=== PATIENT | female | born 1970 | race Caucasian/White ===

== ENCOUNTER → 2017-08-17 | Outpatient (CLI) | payer OTHER ==
--- NOTE | 2017-08-18 10:29 | MM ---
Reason for exam: screening (asymptomatic). Last mammogram was performed 1 year and 5 months ago. Physical Findings: A clinical breast exam by your physician is recommended on an annual basis and results should be correlated with mammographic findings. MG 3D Screening Mammo W/Cad Bilateral CC and MLO view(s) were taken. Prior study comparison: March 06, 2016, bilateral MG 3d screening mammo w/cad. January 07, 2015, bilateral MG screening mammo w CAD. The breast tissue is heterogeneously dense. This may lower the sensitivity of mammography. There is no discrete abnormality. ASSESSMENT: Negative, BI-RAD 1 RECOMMENDATION: Routine screening mammogram of both breasts in 1 year.
== END | disposition home or self-care (01) ==
LOC: RADMAMWWP 16:45
PROVIDERS: ATTEND Obstetrics & Gynecology
DX: Z12.31 Encounter for screening mammogram for malignant neoplasm of breast (principal)
CPT/HCPCS: 77063; G0202

== ENCOUNTER → 2018-02-25 | Outpatient (CLI) | payer OTHER ==
--- NOTE | 2018-02-25 07:53 | US ---
EXAMINATION TYPE: US abdomen complete DATE OF EXAM: 02/25/2018 COMPARISON: 07/25/2014 CLINICAL HISTORY: 48-year-old female R10.11 Right upper quadrant pain. General abdominal pain, NPO, n o surgeries TECHNIQUE: Multiple sonographic images of the abdomen are obtained. FINDINGS: EXAM MEASUREMENTS: Liver Length: 14.5 cm Gallbladder Wall: 0.2 cm CBD: 0.5 cm CHD: 0.3 cm Spleen: 10.4 cm Right Kidney: 11.6 x 4.6 x 3.9 cm Left Kidney: 11.2 x 5.9 x 5.6 cm Pancreas: wnl Liver: Right posterior simple cystic appearing lesion = 3.5 x 2.5 x 2.6 cm. Homogeneous echotexture and normal size. Gallbladder: wnl Evidence for sonographic Marinelli's sign: neg CBD: wnl CHD: wnl Spleen: wnl Right Kidney: No hydronephrosis. Left Kidney: A small extrarenal pelvis versus 1.7 cm parapelvic cyst. No hydronephrosis. Upper IVC: wnl Abd Aorta: wnl IMPRESSION: 1. An incidental 3.5 cm cyst posteriorly in the right liver lobe. 2. Otherwise, no specific abnormality seen.
[2018-02-25 08:16] LABS: HCT 41.6 % (34.0-46.0); MCH 29.3 pg (25.0-35.0); MCHC 33.7 g/dL (31.0-37.0); MCV 87.1 fL (80.0-100.0); Mean Platelet Volume 7.8; Platelet Count 164 k/uL (150-450); RBC 4.78 m/uL (3.80-5.40); RDW 12.2 % (11.5-15.5); WBC 5.3 k/uL (3.8-10.6)
[2018-02-25 08:36] LABS: ALT 28 U/L (9-52); AST 23 U/L (14-36); Albumin 4.2 g/dL (3.5-5.0); Alkaline Phosphatase 43 U/L (38-126); Anion Gap 9 mmol/L; Blood Urea Nitrogen 18 mg/dL (7-17); Carbon Dioxide 26 mmol/L (22-30); Chloride 104 mmol/L (98-107); Cholesterol 183 mg/dL (<200); Glucose 78 mg/dL (74-99); HDL Cholesterol 61 mg/dL (40-60); LDL Cholesterol,Calculated 102 mg/dL (0-99); Potassium 4.3 mmol/L (3.5-5.1); Sodium 139 mmol/L (137-145); Total Bilirubin 0.5 mg/dL (0.2-1.3); Total Protein 6.5 g/dL (6.3-8.2); Triglycerides 100 mg/dL (<150)
[2018-02-25 08:45] LABS: T4, Free (Free Thyroxine) 0.85 ng/dL (0.78-2.19)
== END | disposition home or self-care (01) ==
LOC: RADUSWWP 07:05
PROVIDERS: ATTEND Internal Medicine
DX: K76.89 Other specified diseases of liver (principal); I10 Essential (primary) hypertension; R19.7 Diarrhea, unspecified
CPT/HCPCS: 36415; 76700; 80053; 80061; 83630; 84439; 84443; 85027; 87328; 87329

== ENCOUNTER → 2019-03-14 | Outpatient (CLI) | payer OTHER ==
--- NOTE | 2019-03-16 11:58 | MM ---
Reason for exam: screening (asymptomatic). Last mammogram was performed 1 year and 7 months ago. Physical Findings: A clinical breast exam by your physician is recommended on an annual basis and results should be correlated with mammographic findings. MG 3D Screening Mammo W/Cad Bilateral CC and MLO view(s) were taken. Prior study comparison: August 17, 2017, bilateral MG 3d screening mammo w/cad. March 06, 2016, bilateral MG 3d screening mammo w/cad. The breast tissue is extremely dense which could obscure a lesion on mammography. No significant changes when compared with prior studies. ASSESSMENT: Benign, BI-RAD 2 RECOMMENDATION: Routine screening mammogram of both breasts in 1 year.
== END | disposition home or self-care (01) ==
LOC: RADMAMWWP 16:32
PROVIDERS: ATTEND Obstetrics & Gynecology
DX: Z12.31 Encounter for screening mammogram for malignant neoplasm of breast (principal)
CPT/HCPCS: 77063; 77067

== ENCOUNTER → 2019-05-09 | Outpatient (CLI) | payer OTHER ==
[2019-05-09 10:35] LABS: Basophils % (A) 0 %; Eosinophils # (A) 0.1 k/uL (0-0.7); Eosinophils % (A) 1 %; HCT 39.9 % (34.0-46.0); HGB 13.9 gm/dL (11.4-16.0); Lymphocytes # (A) 0.6 k/uL (1.0-4.8); Lymphocytes % (A) 12 %; MCH 30.7 pg (25.0-35.0); MCHC 34.9 g/dL (31.0-37.0); MCV 87.9 fL (80.0-100.0); Mean Platelet Volume 8.4; Monocytes # (A) 0.3 k/uL (0-1.0); Monocytes % (A) 5 %; Neutrophils # (A) 4.3 k/uL (1.3-7.7); Neutrophils % (A) 81 %; Platelet Count 157 k/uL (150-450); RBC 4.54 m/uL (3.80-5.40); RDW 13.6 % (11.5-15.5); WBC 5.3 k/uL (3.8-10.6)
[2019-05-09 17:53] LABS: African American GFR (CKD) 119.6 (60.0-200.0); Albumin 4.2 g/dL (3.80-4.90); Albumin/Globulin Ratio 2.21 (1.60-3.17); Anion Gap 7.7 mmol/L (4.00-12.00); BUN/Creat Ratio 17.14 Ratio (12.00-20.00); Carbon Dioxide 27.3 mmol/L (21.6-31.8); Chol/HDL Ratio 2.27; Globulin 1.9 g/dL (1.6-3.3); Potassium 3.9 mmol/L (3.5-5.5); Total Bilirubin 0.5 mg/dL (0.3-1.2); Total Protein 6.1 g/dL (6.2-8.2)
== END | disposition home or self-care (01) ==
LOC: LABWHC1 09:01
PROVIDERS: ATTEND Internal Medicine
DX: Z00.01 Encounter for general adult medical examination with abnormal findings (principal); I10 Essential (primary) hypertension; Z13.220 Encounter for screening for lipoid disorders
CPT/HCPCS: 36415; 80053; 80061; 84443; 85025

== ENCOUNTER → 2020-09-16 | Outpatient (CLI) | payer OTHER ==
--- NOTE | 2020-09-17 14:33 | MM ---
Reason for exam: screening (asymptomatic). Last mammogram was performed 1 year and 6 months ago. History: Took estrogen beginning at age 50. Physical Findings: A clinical breast exam by your physician is recommended on an annual basis and results should be correlated with mammographic findings. MG 3D Screening Mammo W/Cad Bilateral CC and MLO view(s) were taken. Prior study comparison: March 14, 2019, bilateral MG 3d screening mammo w/cad. August 17, 2017, bilateral MG 3d screening mammo w/cad. The breast tissue is heterogeneously dense. This may lower the sensitivity of mammography. Focal asymmetry left breast, present previously. No significant changes when compared with prior studies. ASSESSMENT: Benign, BI-RAD 2 RECOMMENDATION: Routine screening mammogram of both breasts in 1 year.
== END | disposition home or self-care (01) ==
LOC: RADMAMWWP 09:32
PROVIDERS: ATTEND Obstetrics & Gynecology
DX: Z12.31 Encounter for screening mammogram for malignant neoplasm of breast (principal)
CPT/HCPCS: 77063; 77067

== ENCOUNTER 2021-03-07 22:41 | Emergency (ER) | payer OTHER ==
[2021-03-07 22:49] VITALS: RESP 16; TEMP 97.9
[2021-03-07] MEDS ORDERED: ONDANSETRON 4 MG/2 ML VIAL IVP STA (23:03)
[2021-03-07] MEDS ORDERED: SODIUM CHLORIDE 0.9% 1,000 ML IV STA (23:03)
[2021-03-07] MEDS ORDERED: FAMOTIDINE 20 MG/2 ML VIAL IV STA (23:08)
--- NOTE | 2021-03-07 23:10 | ED ---
General Adult HPI - General Chief complaint: Abdominal Pain Stated complaint: NVD Source: patient, RN notes reviewed Mode of arrival: wheelchair Limitations: no limitations - History of Present Illness Initial comments: 51-year-old white female presents to the emergency room, alert and oriented 4, complaints of diarrhea for the past 24 hours up to 20 times a day. Patient stat es it is watery and mostly clear no she is also having nausea but no vomiting. She states describes the pain as sharp and sometimes crampy. She has never had this before. She denies any fevers but she does state that she has chills at times. Patient is concerned that she maybe had some food poisoning but no one else is sick. She has no sick contacts. She has surgical history of a goiter removal and hysterectomy. medical history of GERD and hypertension. She is afebrile. She denies any cough or chest pain. She also denies any hematochezia or hematemesis. -: days(s) (1) Location: abdomen Radiation: non-radiation Severity scale (1-10): 6 Quality: sharp, other Consistency: intermittent Improves with: none Worsens with: none Associated Symptoms: fever/chills, headaches Treatments Prior to Arrival: none - Related Data Home Medications Medication Instructions Recorded Confirmed Ferrous Sulfate [Feosol] 325 mg PO DAILY 05/14/16 07/08/16 Lansoprazole 30 mg PO DAILY 05/14/16 07/08/16 lisinopriL [Zestril] 10 mg PO DAILY@1500 05/14/16 07/08/16 Previous Rx's Medication Instructions Recorded Acetaminophen-Codeine 300-30mg 1 each PO Q4HR PRN #10 tab 07/08/16 [Tylenol w/codeine #3] Ibuprofen [Motrin] 800 mg PO Q6HR PRN #30 tab 07/08/16 Ondansetron Odt [Zofran Odt] 4 mg PO Q8HR PRN #10 tab 03/08/21 Allergies Allergy/AdvReac Type Severity Reaction Status Date / Time erythromycin base Allergy Abdominal Verified 03/07/21 22:49 Pain Penicillins Allergy Rash/Hives Verified 03/07/21 22:49 sulfamethoxazole Allergy Rash/Hives Verified 03/07/21 22:49 [From Bactrim] trimethoprim [From Bactrim] Allergy Rash/Hives Verified 03/07/21 22:49 Review of Systems ROS Statement: Those systems with pertinent positive or pertinent negative responses have been documented in the HPI. ROS Other: All systems not noted in ROS Statement are negative. Past Medical History Past Medical History: GERD/Reflux, Hypertension, Thyroid Disorder History of Any Multi-Drug Resistant Organisms: None Reported Past Surgical History: Hysterectomy, Tubal Ligation Additional Past Surgical History / Comment(s): thyroid surgery Past Anesthesia/Blood Transfusion Reactions: Postoperative Nausea & Vomiting (PONV) Past Psychological History: No Psychological Hx Reported Smoking Status: Never smoker Past Alcohol Use History: Occasional Past Drug Use History: None Reported - Past Family History Mother Family Medical History: No Reported History General Exam Limitations: no limitations General appearance: alert, in no apparent distress Head exam: Present: atraumatic, normocephalic, normal inspection Eye exam: Present: normal appearance, PERRL, EOMI. Absent: scleral icterus, conjunctival injection, periorbital swelling Pupils: Present: normal accommodation ENT exam: Present: normal exam, normal oropharynx, mucous membranes moist Neck exam: Present: normal inspection, full ROM. Absent: tenderness, meningismus, lymphadenopathy, thyromegaly Respiratory exam: Present: normal lung sounds bilaterally. Absent: respiratory distress, wheezes, rales, rhonchi, stridor, chest wall tenderness, accessory muscle use, decreased breath sounds, prolonged expiratory Cardiovascular Exam: Present: normal rhythm, tachycardia, normal heart sounds. Absent: systolic murmur, diastolic murmur, rubs, gallop, clicks GI/Abdominal exam: Present: soft, normal bowel sounds. Absent: distended, tenderness, guarding, rebound, rigid, mass, hernia Extremities exam: Present: normal inspection, full ROM, normal capillary refill. Absent: tenderness, pedal edema, joint swelling, calf tenderness Back exam: Present: normal inspection, full ROM. Absent: tenderness, CVA tenderness (R), CVA tenderness (L), muscle spasm, paraspinal tenderness, vertebral tenderness, rash noted Neurological exam: Present: alert, oriented X3, CN II-XII intact Psychiatric exam: Present: normal affect, normal mood Skin exam: Present: warm, dry, intact, normal color. Absent: rash, cyanosis, diaphoretic, erythema, petechiae, pallor, mottled Course Vital Signs 03/07/21 22:46 Temperature 97.9 F Pulse Rate 104 H Respiratory 16 Rate Blood Pressure 150/98 O2 Sat by Pulse 96 Oximetry Medical Decision Making - Medical Decision Making KUB x-ray shows no intestinal infection or pneumoperitoneum is no sign of mass or kidney stones. WBC count was 6.3, hemoglobin and hematocrit are within normal limits. Sodium is 134, potassium is 3.9, glucose 112, lactic acid is 0.7. UA is cloudy with 2+ ketones, negative leukocytes and negative nitrites. Patient was given a liter of normal saline, Zofran, Maalox and Pepcid. Abdomen is soft and nontender there is no guarding. She denies any hematochezia or hematemesis. She is well-appearing. She will be discharged home with prescription for Zofran directed to follow up with her primary care doctor next week. Return if worsening symptoms. Case discussed Dr. Darden - Lab Data Result diagrams: 03/07/21 06:31 03/07/21 23:07 Lab Results 03/07/21 03/07/21 03/07/21 Range/Units 06:31 23:07 23:07 WBC 6.3 (3.8-10.6) k/uL RBC 5.32 (3.80-5.40) m/uL Hgb 16.4 H (11.4-16.0) gm/dL Hct 44.5 (34.0-46.0) % MCV 83.7 (80.0-100.0) fL MCH 30.8 (25.0-35.0) pg MCHC 36.8 (31.0-37.0) g/dL RDW 11.6 (11.5-15.5) % Plt Count 149 L (150-450) k/uL MPV 8.1 Neutrophils % 87 % Lymphocytes % 7 % Monocytes % 5 % Eosinophils % 1 % Basophils % 0 % Neutrophils # 5.4 (1.3-7.7) k/uL Lymphocytes # 0.4 L (1.0-4.8) k/uL Monocytes # 0.3 (0-1.0) k/uL Eosinophils # 0.1 (0-0.7) k/uL Basophils # 0.0 (0-0.2) k/uL Sodium 134 L (137-145) mmol/L Potassium 3.9 (3.5-5.1) mmol/L Chloride 103 (98-107) mmol/L Carbon Dioxide 18 L (22-30) mmol/L Anion Gap 13 mmol/L BUN 8 (7-17) mg/dL Creatinine 0.59 (0.52-1.04) mg/dL Est GFR (CKD-EPI)AfAm >90 (>60 ml/min/1.73 sqM) Est GFR (CKD-EPI)NonAf >90 (>60 ml/min/1.73 sqM) Glucose 112 H (74-99) mg/dL Plasma Lactic Acid Ariel (0.7-2.0) mmol/L Calcium 9.6 (8.4-10.2) mg/dL Total Bilirubin 0.5 (0.2-1.3) mg/dL AST 46 H (14-36) U/L ALT 27 (4-34) U/L Alkaline Phosphatase 56 (38-126) U/L Total Protein 7.3 (6.3-8.2) g/dL Albumin 4.6 (3.5-5.0) g/dL Amylase 44 (30-110) U/L Lipase 60 (23-300) U/L Urine Color Yellow Urine Appearance Cloudy H (Clear) Urine pH 6.0 (5.0-8.0) Ur Specific [place] 1.025 (1.001-1.035) Urine Protein 1+ H (Negative) Urine Glucose (UA) Negative (Negative) Urine Ketones 2+ H (Negative) Urine Blood Small H (Negative) Urine Nitrite Negative (Negative) Urine Bilirubin Negative (Negative) Urine Urobilinogen <2.0 (<2.0) mg/dL Ur Leukocyte Esterase Negative (Negative) Urine RBC 2 (0-5) /hpf Urine WBC 7 H (0-5) /hpf Ur Squamous Epith Cells 4 (0-4) /hpf Urine Bacteria Rare H (None) /hpf Urine Mucus Many H (None) /hpf 03/07/21 Range/Units 23:07 WBC (3.8-10.6) k/uL RBC (3.80-5.40) m/uL Hgb (11.4-16.0) gm/dL Hct (34.0-46.0) % MCV (80.0-100.0) fL MCH (25.0-35.0) pg MCHC (31.0-37.0) g/dL RDW (11.5-15.5) % Plt Count (150-450) k/uL MPV Neutrophils % % Lymphocytes % % Monocytes % % Eosinophils % % Basophils % % Neutrophils # (1.3-7.7) k/uL Lymphocytes # (1.0-4.8) k/uL Monocytes # (0-1.0) k/uL Eosinophils # (0-0.7) k/uL Basophils # (0-0.2) k/uL Sodium (137-145) mmol/L Potassium (3.5-5.1) mmol/L Chloride (98-107) mmol/L Carbon Dioxide (22-30) mmol/L Anion Gap mmol/L BUN (7-17) mg/dL Creatinine (0.52-1.04) mg/dL Est GFR (CKD-EPI)AfAm (>60 ml/min/1.73 sqM) Est GFR (CKD-EPI)NonAf (>60 ml/min/1.73 sqM) Glucose (74-99) mg/dL Plasma Lactic Acid Ariel 0.7 (0.7-2.0) mmol/L Calcium (8.4-10.2) mg/dL Total Bilirubin (0.2-1.3) mg/dL AST (14-36) U/L ALT (4-34) U/L Alkaline Phosphatase (38-126) U/L Total Protein (6.3-8.2) g/dL Albumin (3.5-5.0) g/dL Amylase (30-110) U/L Lipase (23-300) U/L Urine Color Urine Appearance (Clear) Urine pH (5.0-8.0) Ur Specific [place] (1.001-1.035) Urine Protein (Negative) Urine Glucose (UA) (Negative) Urine Ketones (Negative) Urine Blood (Negative) Urine Nitrite (Negative) Urine Bilirubin (Negative) Urine Urobilinogen (<2.0) mg/dL Ur Leukocyte Esterase (Negative) Urine RBC (0-5) /hpf Urine WBC (0-5) /hpf Ur Squamous Epith Cells (0-4) /hpf Urine Bacteria (None) /hpf Urine Mucus (None) /hpf Disposition Clinical Impression: Diarrhea, Dehydration Disposition: HOME SELF-CARE Condition: Fair Instructions (If sedation given, give patient instructions): Dehydration (ED), Acute Diarrhea (ED) Additional Instructions: Increase her fluid intake, use Zofran as needed for any nausea. Follow-up with the primary care doctor next week. Return to the emergency room with worsening symptoms, fevers, bloody vomit or blood in your stool. Prescriptions: Ondansetron Odt [Zofran Odt] 4 mg PO Q8HR PRN #10 tab PRN Reason: Nausea Is patient prescribed a controlled substance at d/c from ED?: No Referrals: Alyssa Sampson MD [Primary Care Provider] - 1-2 days Time of Disposition: 00:10
[2021-03-07 23:20] LABS: Basophils % (A) 0 %; Eosinophils # (A) 0.1 k/uL (0-0.7); Eosinophils % (A) 1 %; HCT 44.5 % (34.0-46.0); HGB 16.4 gm/dL (11.4-16.0); Lymphocytes # (A) 0.4 k/uL (1.0-4.8); Lymphocytes % (A) 7 %; MCH 30.8 pg (25.0-35.0); MCHC 36.8 g/dL (31.0-37.0); MCV 83.7 fL (80.0-100.0); Mean Platelet Volume 8.1; Monocytes # (A) 0.3 k/uL (0-1.0); Monocytes % (A) 5 %; Neutrophils # (A) 5.4 k/uL (1.3-7.7); Neutrophils % (A) 87 %; Platelet Count 149 k/uL (150-450); RBC 5.32 m/uL (3.80-5.40); RDW 11.6 % (11.5-15.5); WBC 6.3 k/uL (3.8-10.6)
[2021-03-07 23:34] LABS: Appearance,Urine Cloudy (Clear); Bacteria,Urine Rare /hpf; Bilirubin,Urine Negative (Negative); Blood,Urine Small (Negative); Color,Urine Yellow; Glucose,Urine (UA) Negative (Negative); Ketones,Urine 2+ (Negative); Leukocyte Esterase,Urine Negative (Negative); Mucus,Urine Many /hpf; Nitrite,Urine Negative (Negative); Protein,Urine 1+ (Negative); RBC,Urine 2 /hpf (0-5); Specific Gravity,Urine 1.025 (1.001-1.035); Squamous Epithelial Cell,Urine 4 /hpf (0-4); Urobilinogen,Urine <2.0 mg/dL (<2.0); WBC,Urine 7 /hpf (0-5)
--- NOTE | 2021-03-07 23:41 | XR ---
EXAMINATION TYPE: XR KUB DATE OF EXAM: 03/07/2021 COMPARISON: NONE HISTORY: Pain TECHNIQUE: 2 views upright FINDINGS: There is no sign of intestinal obstruction or pneumoperitoneum. Fecal pattern is normal. Th ere is no sign of a mass. There are no pathologic calcifications over the kidneys. IMPRESSION: Nonacute abdomen.
[2021-03-07 23:56] LABS: ALT 27 U/L (4-34); African American GFR (CKD) >90 (>60 ml/min/1.73 sqM); Albumin 4.6 g/dL (3.5-5.0); Amylase 44 U/L (30-110); Anion Gap 13 mmol/L; Blood Urea Nitrogen 8 mg/dL (7-17); Calcium 9.6 mg/dL (8.4-10.2); Carbon Dioxide 18 mmol/L (22-30); Chloride 103 mmol/L (98-107); Glucose 112 mg/dL (74-99); Lipase 60 U/L (23-300); Non-African American GFR(CKD) >90 (>60 ml/min/1.73 sqM); Sodium 134 mmol/L (137-145); Total Bilirubin 0.5 mg/dL (0.2-1.3); Total Protein 7.3 g/dL (6.3-8.2)
[2021-03-08] LABS: AST 46 U/L (14-36); Alkaline Phosphatase 56 U/L (38-126); Potassium 3.9 mmol/L (3.5-5.1)
[2021-03-08] MEDS ORDERED: ONDANSETRON 4 MG/2 ML VIAL IVP STA (00:11)
[2021-03-08] MEDS ORDERED: MAG HYDROX/AL HYDROX/SIMETH 30 ML CUP PO STA (00:11)
[2021-03-08 00:31] VITALS: BP 128/78; PULSE 88
== END 2021-03-08 00:30 | disposition home or self-care (01) ==
LOC: EC 22:41
DX: R19.7 Diarrhea, unspecified (principal); E86.0 Dehydration; R11.0 Nausea; I10 Essential (primary) hypertension; K21.9 Gastro-esophageal reflux disease without esophagitis; Z79.899 Other long term (current) drug therapy; Z88.0 Allergy status to penicillin; Z88.1 Allergy status to other antibiotic agents; Z88.2 Allergy status to sulfonamides
CPT/HCPCS: 36415; 80053; 82150; 83605; 83690; 85025; 81001; 87045; 87046; 74018; 99284; 96374; 96375; 96376; 96361; J2405 ×2

== ENCOUNTER 2021-03-10 09:39 | Inpatient (IN) | payer OTHER ==
[2021-03-10] MEDS ORDERED: ONDANSETRON 4 MG/2 ML VIAL IVP STA (10:27)
[2021-03-10] MEDS ORDERED: SODIUM CHLORIDE 0.9% 2,000 ML IV STA (10:27)
[2021-03-10] MEDS ORDERED: MAG HYDROX/AL HYDROX/SIMETH 30 ML, HYOSCYAMINE ELIXIR 10 ML PO STA ×2 (10:28)
--- NOTE | 2021-03-10 11:09 | ED ---
Abdominal Pain HPI - General Source: patient, RN notes reviewed Mode of arrival: ambulatory Limitations: no limitations <Hong Schmitt - Last Filed: 03/10/21 13:40> <Minda Chavira - Last Filed: 03/20/21 01:48> - General Chief Complaint: Abdominal Pain Stated Complaint: Revisit Abd Pain Time Seen by Provider: 03/10/21 10:03 - History of Present Illness Initial Comments: This a 51-year-old female presents emergency Department with chief complaint of nausea, heartburn, diarrhea. Patient states she's been sick for 5 days was seen here for some complaints. Patient states that her diarrhea and heartburn is getting worse. No chest pain. Patient states that she does take omeprazole she states she has doubled up on it. Patient denies any fevers or chills patient states her temperature it symptoms worsen. She denies any prior abdominal surgeries denies any chance no fever states that she did have some chills. (Hong Schmitt) - Related Data Home Medications Medication Instructions Recorded Confirmed Benazepril [Lotensin] 10 mg PO DAILY 03/10/21 03/10/21 Estradiol Cream [Estrace Cream 1 gm VAGINAL DAILY 03/10/21 03/10/21 0.01%] Omeprazole 20 mg PO BID 03/10/21 03/10/21 Progesterone, Micronized 200 mg PO Q48H 03/10/21 03/10/21 [Progesterone] amLODIPine [Norvasc] 5 mg PO DAILY 03/10/21 03/10/21 Previous Rx's Medication Instructions Recorded Ondansetron Odt [Zofran ODT] 4 mg PO Q8HR PRN #10 tab 03/08/21 Acetaminophen Tab [Tylenol] 650 mg PO Q6HR PRN tab 03/18/21 Cholestyramine (with Sugar) 4 gm PO BID PRN #30 packet 03/18/21 [Questran Packet] Allergies Allergy/AdvReac Type Severity Reaction Status Date / Time erythromycin base Allergy Abdominal Verified 03/10/21 17:16 Pain Penicillins Allergy Rash/Hives Verified 03/10/21 17:16 sulfamethoxazole Allergy Rash/Hives Verified 03/10/21 17:16 [From Bactrim] trimethoprim [From Bactrim] Allergy Rash/Hives Verified 03/10/21 17:16 Review of Systems ROS Other: All systems not noted in ROS Statement are negative. <Hong Schmitt - Last Filed: 03/10/21 13:40> ROS Other: All systems not noted in ROS Statement are negative. <FanMinda Rufino - Last Filed: 03/20/21 01:48> ROS Statement: Those systems with pertinent positive or pertinent negative responses have been documented in the HPI. Past Medical History Past Medical History: GERD/Reflux, Hypertension, Thyroid Disorder History of Any Multi-Drug Resistant Organisms: None Reported Past Surgical History: Hysterectomy, Tubal Ligation Additional Past Surgical History / Comment(s): thyroid surgery Past Anesthesia/Blood Transfusion Reactions: Postoperative Nausea & Vomiting (PONV) Past Psychological History: No Psychological Hx Reported Smoking Status: Never smoker Past Alcohol Use History: Occasional Past Drug Use History: None Reported - Past Family History Mother Family Medical History: No Reported History <Hong Schmitt - Last Filed: 03/10/21 13:40> General Exam Limitations: no limitations General appearance: alert, in no apparent distress Head exam: Present: atraumatic, normocephalic, normal inspection Eye exam: Present: normal appearance, PERRL, EOMI. Absent: scleral icterus, conjunctival injection, periorbital swelling ENT exam: Present: normal exam, normal oropharynx, mucous membranes moist Neck exam: Present: normal inspection, full ROM. Absent: tenderness, meningismus, lymphadenopathy Respiratory exam: Present: normal lung sounds bilaterally. Absent: respiratory distress, wheezes, rales, rhonchi, stridor Cardiovascular Exam: Present: normal rhythm, tachycardia, normal heart sounds. Absent: systolic murmur, diastolic murmur, rubs, gallop, clicks GI/Abdominal exam: Present: soft, normal bowel sounds. Absent: distended, tenderness, guarding, rebound, rigid Neurological exam: Present: alert Skin exam: Present: warm, dry, intact, normal color. Absent: rash <Hong Schmitt - Last Filed: 03/10/21 13:40> Course Vital Signs 03/10/21 03/10/21 03/10/21 09:51 14:03 16:48 Temperature 98.3 F 97.9 F 98.2 F Pulse Rate 117 H 87 Pulse Rate [ 87 Right Brachial] Respiratory 18 18 18 Rate Blood Pressure 104/73 119/78 Blood Pressure 113/70 [Right Arm] O2 Sat by Pulse 97 98 98 Oximetry Medical Decision Making - Lab Data Result diagrams: 03/10/21 10:40 03/10/21 10:40 <Hong Schmitt - Last Filed: 03/10/21 13:40> - Lab Data Result diagrams: 03/17/21 06:11 03/17/21 06:11 <Minda Chavira - Last Filed: 03/20/21 01:48> - Medical Decision Making 51-year-old female presented emergency department for nausea and diarrhea. Patient's found to be acutely dehydrated, symptomatic with some near syncopal episodes. Patient be admitted to observation for fluid hydration, she denied control. (Hong Schmitt) I was available for consultation in the emergency department. The history and physical exam were done by the midlevel provider. I was consulted for this patients care. I reviewed the case with the midlevel provider and based on their presentation of the patient, I agree with the assessment, medical decision making and plan of care as documented. Chart was dictated using [employer] dictation software. Attempts were made to correct any dictation errors however some typographical errors may persist. (Minda Chavira) - Lab Data Lab Results 03/10/21 03/10/21 03/10/21 Range/Units 10:40 10:40 10:40 WBC 5.0 (3.8-10.6) k/uL RBC 5.19 (3.80-5.40) m/uL Hgb 15.7 (11.4-16.0) gm/dL Hct 42.6 (34.0-46.0) % MCV 82.0 (80.0-100.0) fL MCH 30.3 (25.0-35.0) pg MCHC 36.9 (31.0-37.0) g/dL RDW 11.6 (11.5-15.5) % Plt Count 137 L (150-450) k/uL MPV 8.2 Neutrophils % 76 % Lymphocytes % 10 % Monocytes % 10 % Eosinophils % 1 % Basophils % 0 % Neutrophils # 3.8 (1.3-7.7) k/uL Lymphocytes # 0.5 L (1.0-4.8) k/uL Monocytes # 0.5 (0-1.0) k/uL Eosinophils # 0.0 (0-0.7) k/uL Basophils # 0.0 (0-0.2) k/uL Hyperchromasia Slight ESR (0-20) mm/hr Sodium 132 L (137-145) mmol/L Potassium 3.3 L (3.5-5.1) mmol/L Chloride 98 (98-107) mmol/L Carbon Dioxide 23 (22-30) mmol/L Anion Gap 11 mmol/L BUN 9 (7-17) mg/dL Creatinine 0.68 (0.52-1.04) mg/dL Est GFR (CKD-EPI)AfAm >90 (>60 ml/min/1.73 sqM) Est GFR (CKD-EPI)NonAf >90 (>60 ml/min/1.73 sqM) Glucose 81 (74-99) mg/dL Plasma Lactic Acid Ariel (0.7-2.0) mmol/L Calcium 9.2 (8.4-10.2) mg/dL Magnesium (1.6-2.3) mg/dL Total Bilirubin 0.4 (0.2-1.3) mg/dL Conjugated Bilirubin (0.0-0.3) mg/dL Unconjugated Bilirubin (0.0-1.1) mg/dL Delta Bilirubin (0.0-0.2) mg/dL AST 72 H (14-36) U/L ALT 125 H (4-34) U/L Alkaline Phosphatase 58 (38-126) U/L Troponin I (0.000-0.034) ng/mL C-Reactive Protein (<1.0) mg/dL Total Protein 6.3 (6.3-8.2) g/dL Albumin 3.9 (3.5-5.0) g/dL Amylase 51 (30-110) U/L Lipase 113 (23-300) U/L Urine Color Yellow Urine Appearance Cloudy H (Clear) Urine pH 6.0 (5.0-8.0) Ur Specific Keller 1.024 (1.001-1.035) Urine Protein 1+ H (Negative) Urine Glucose (UA) Negative (Negative) Urine Ketones 4+ H (Negative) Urine Blood Trace H (Negative) Urine Nitrite Negative (Negative) Urine Bilirubin 1+ H (Negative) Urine Urobilinogen <2.0 (<2.0) mg/dL Ur Leukocyte Esterase Negative (Negative) Urine RBC 3 (0-5) /hpf Urine WBC 6 H (0-5) /hpf Ur Squamous Epith Cells 8 H (0-4) /hpf Urine Bacteria Occasional H (None) /hpf Urine Mucus Many H (None) /hpf Stool Lactoferrin (NEGATIVE) Stl Cryptosporidium Ag (Negative) Stool Giardia Source Stl Giardia Antigen (Negative) Urine Opiates Screen (NotDetected) Ur Oxycodone Screen (NotDetected) Urine Methadone Screen (NotDetected) Ur Propoxyphene Screen (NotDetected) Ur Barbiturates Screen (NotDetected) U Tricyclic Antidepress (NotDetected) Ur Phencyclidine Scrn (NotDetected) Ur Amphetamines Screen (NotDetected) U Methamphetamines Scrn (NotDetected) U Benzodiazepines Scrn (NotDetected) Urine Cocaine Screen (NotDetected) U Marijuana (THC) Screen (NotDetected) Rheumatoid Factor (0-15) IU/mL BEE Screen (NEGATIVE) C. difficile (EIA) Intrp (Negative) Coronavirus (PCR) (Not Detected) HIV-1 Antibody (Non-Reactive) HIV Ag/Ab Interpret HIV p24 Antibody (Non-Reactive) HIV-2 Antibody (Non-Reactive) HIV P24 Antigen (Non-Reactive) 03/10/21 03/10/21 03/10/21 Range/Units 10:40 10:40 16:40 WBC (3.8-10.6) k/uL RBC (3.80-5.40) m/uL Hgb (11.4-16.0) gm/dL Hct (34.0-46.0) % MCV (80.0-100.0) fL MCH (25.0-35.0) pg MCHC (31.0-37.0) g/dL RDW (11.5-15.5) % Plt Count (150-450) k/uL MPV Neutrophils % % Lymphocytes % % Monocytes % % Eosinophils % % Basophils % % Neutrophils # (1.3-7.7) k/uL Lymphocytes # (1.0-4.8) k/uL Monocytes # (0-1.0) k/uL Eosinophils # (0-0.7) k/uL Basophils # (0-0.2) k/uL Hyperchromasia ESR (0-20) mm/hr Sodium (137-145) mmol/L Potassium (3.5-5.1) mmol/L Chloride (98-107) mmol/L Carbon Dioxide (22-30) mmol/L Anion Gap mmol/L BUN (7-17) mg/dL Creatinine (0.52-1.04) mg/dL Est GFR (CKD-EPI)AfAm (>60 ml/min/1.73 sqM) Est GFR (CKD-EPI)NonAf (>60 ml/min/1.73 sqM) Glucose (74-99) mg/dL Plasma Lactic Acid Ariel 0.8 (0.7-2.0) mmol/L Calcium (8.4-10.2) mg/dL Magnesium (1.6-2.3) mg/dL Total Bilirubin (0.2-1.3) mg/dL Conjugated Bilirubin (0.0-0.3) mg/dL Unconjugated Bilirubin (0.0-1.1) mg/dL Delta Bilirubin (0.0-0.2) mg/dL AST (14-36) U/L ALT (4-34) U/L Alkaline Phosphatase (38-126) U/L Troponin I <0.012 (0.000-0.034) ng/mL C-Reactive Protein (<1.0) mg/dL Total Protein (6.3-8.2) g/dL Albumin (3.5-5.0) g/dL Amylase (30-110) U/L Lipase (23-300) U/L Urine Color Urine Appearance (Clear) Urine pH (5.0-8.0) Ur Specific Keller (1.001-1.035) Urine Protein (Negative) Urine Glucose (UA) (Negative) Urine Ketones (Negative) Urine Blood (Negative) Urine Nitrite (Negative) Urine Bilirubin (Negative) Urine Urobilinogen (<2.0) mg/dL Ur Leukocyte Esterase (Negative) Urine RBC (0-5) /hpf Urine WBC (0-5) /hpf Ur Squamous Epith Cells (0-4) /hpf Urine Bacteria (None) /hpf Urine Mucus (None) /hpf Stool Lactoferrin (NEGATIVE) Stl Cryptosporidium Ag (Negative) Stool Giardia Source Stl Giardia Antigen (Negative) Urine Opiates Screen (NotDetected) Ur Oxycodone Screen (NotDetected) Urine Methadone Screen (NotDetected) Ur Propoxyphene Screen (NotDetected) Ur Barbiturates Screen (NotDetected) U Tricyclic Antidepress (NotDetected) Ur Phencyclidine Scrn (NotDetected) Ur Amphetamines Screen (NotDetected) U Methamphetamines Scrn (NotDetected) U Benzodiazepines Scrn (NotDetected) Urine Cocaine Screen (NotDetected) U Marijuana (THC) Screen (NotDetected) Rheumatoid Factor (0-15) IU/mL BEE Screen (NEGATIVE) C. difficile (EIA) Intrp Negative (Negative) Coronavirus (PCR) (Not Detected) HIV-1 Antibody (Non-Reactive) HIV Ag/Ab Interpret HIV p24 Antibody (Non-Reactive) HIV-2 Antibody (Non-Reactive) HIV P24 Antigen (Non-Reactive) 03/10/21 03/10/21 03/10/21 Range/Units 18:15 18:15 18:15 WBC (3.8-10.6) k/uL RBC (3.80-5.40) m/uL Hgb (11.4-16.0) gm/dL Hct (34.0-46.0) % MCV (80.0-100.0) fL MCH (25.0-35.0) pg MCHC (31.0-37.0) g/dL RDW (11.5-15.5) % Plt Count (150-450) k/uL MPV Neutrophils % % Lymphocytes % % Monocytes % % Eosinophils % % Basophils % % Neutrophils # (1.3-7.7) k/uL Lymphocytes # (1.0-4.8) k/uL Monocytes # (0-1.0) k/uL Eosinophils # (0-0.7) k/uL Basophils # (0-0.2) k/uL Hyperchromasia ESR (0-20) mm/hr Sodium (137-145) mmol/L Potassium (3.5-5.1) mmol/L Chloride (98-107) mmol/L Carbon Dioxide (22-30) mmol/L Anion Gap mmol/L BUN (7-17) mg/dL Creatinine (0.52-1.04) mg/dL Est GFR (CKD-EPI)AfAm (>60 ml/min/1.73 sqM) Est GFR (CKD-EPI)NonAf (>60 ml/min/1.73 sqM) Glucose (74-99) mg/dL Plasma Lactic Acid Ariel (0.7-2.0) mmol/L Calcium (8.4-10.2) mg/dL Magnesium (1.6-2.3) mg/dL Total Bilirubin 0.4 (0.2-1.3) mg/dL Conjugated Bilirubin 0.0 (0.0-0.3) mg/dL Unconjugated Bilirubin 0.4 (0.0-1.1) mg/dL Delta Bilirubin 0.0 (0.0-0.2) mg/dL AST 61 H (14-36) U/L ALT 101 H (4-34) U/L Alkaline Phosphatase 59 (38-126) U/L Troponin I (0.000-0.034) ng/mL C-Reactive Protein (<1.0) mg/dL Total Protein 5.9 L (6.3-8.2) g/dL Albumin 3.7 (3.5-5.0) g/dL Amylase (30-110) U/L Lipase (23-300) U/L Urine Color Urine Appearance (Clear) Urine pH (5.0-8.0) Ur Specific Keller (1.001-1.035) Urine Protein (Negative) Urine Glucose (UA) (Negative) Urine Ketones (Negative) Urine Blood (Negative) Urine Nitrite (Negative) Urine Bilirubin (Negative) Urine Urobilinogen (<2.0) mg/dL Ur Leukocyte Esterase (Negative) Urine RBC (0-5) /hpf Urine WBC (0-5) /hpf Ur Squamous Epith Cells (0-4) /hpf Urine Bacteria (None) /hpf Urine Mucus (None) /hpf Stool Lactoferrin (NEGATIVE) Stl Cryptosporidium Ag (Negative) Stool Giardia Source Stl Giardia Antigen (Negative) Urine Opiates Screen Not Detected (NotDetected) Ur Oxycodone Screen Not Detected (NotDetected) Urine Methadone Screen Not Detected (NotDetected) Ur Propoxyphene Screen Not Detected (NotDetected) Ur Barbiturates Screen Not Detected (NotDetected) U Tricyclic Antidepress Not Detected (NotDetected) Ur Phencyclidine Scrn Not Detected (NotDetected) Ur Amphetamines Screen Not Detected (NotDetected) U Methamphetamines Scrn Not Detected (NotDetected) U Benzodiazepines Scrn Not Detected (NotDetected) Urine Cocaine Screen Not Detected (NotDetected) U Marijuana (THC) Screen Not Detected (NotDetected) Rheumatoid Factor (0-15) IU/mL BEE Screen (NEGATIVE) C. difficile (EIA) Intrp (Negative) Coronavirus (PCR) Not Detected (Not Detected) HIV-1 Antibody (Non-Reactive) HIV Ag/Ab Interpret HIV p24 Antibody (Non-Reactive) HIV-2 Antibody (Non-Reactive) HIV P24 Antigen (Non-Reactive) 03/10/21 03/10/21 03/10/21 Range/Units 18:15 18:15 18:15 WBC (3.8-10.6) k/uL RBC (3.80-5.40) m/uL Hgb (11.4-16.0) gm/dL Hct (34.0-46.0) % MCV (80.0-100.0) fL MCH (25.0-35.0) pg MCHC (31.0-37.0) g/dL RDW (11.5-15.5) % Plt Count (150-450) k/uL MPV Neutrophils % % Lymphocytes % % Monocytes % % Eosinophils % % Basophils % % Neutrophils # (1.3-7.7) k/uL Lymphocytes # (1.0-4.8) k/uL Monocytes # (0-1.0) k/uL Eosinophils # (0-0.7) k/uL Basophils # (0-0.2) k/uL Hyperchromasia ESR (0-20) mm/hr Sodium (137-145) mmol/L Potassium (3.5-5.1) mmol/L Chloride (98-107) mmol/L Carbon Dioxide (22-30) mmol/L Anion Gap mmol/L BUN (7-17) mg/dL Creatinine (0.52-1.04) mg/dL Est GFR (CKD-EPI)AfAm (>60 ml/min/1.73 sqM) Est GFR (CKD-EPI)NonAf (>60 ml/min/1.73 sqM) Glucose (74-99) mg/dL Plasma Lactic Acid Ariel (0.7-2.0) mmol/L Calcium (8.4-10.2) mg/dL Magnesium (1.6-2.3) mg/dL Total Bilirubin (0.2-1.3) mg/dL Conjugated Bilirubin (0.0-0.3) mg/dL Unconjugated Bilirubin (0.0-1.1) mg/dL Delta Bilirubin (0.0-0.2) mg/dL AST (14-36) U/L ALT (4-34) U/L Alkaline Phosphatase (38-126) U/L Troponin I (0.000-0.034) ng/mL C-Reactive Protein (<1.0) mg/dL Total Protein (6.3-8.2) g/dL Albumin (3.5-5.0) g/dL Amylase (30-110) U/L Lipase (23-300) U/L Urine Color Urine Appearance (Clear) Urine pH (5.0-8.0) Ur Specific Keller (1.001-1.035) Urine Protein (Negative) Urine Glucose (UA) (Negative) Urine Ketones (Negative) Urine Blood (Negative) Urine Nitrite (Negative) Urine Bilirubin (Negative) Urine Urobilinogen (<2.0) mg/dL Ur Leukocyte Esterase (Negative) Urine RBC (0-5) /hpf Urine WBC (0-5) /hpf Ur Squamous Epith Cells (0-4) /hpf Urine Bacteria (None) /hpf Urine Mucus (None) /hpf Stool Lactoferrin POSITIVE A (NEGATIVE) Stl Cryptosporidium Ag Positive A (Negative) Stool Giardia Source Stool Stl Giardia Antigen Negative (Negative) Urine Opiates Screen (NotDetected) Ur Oxycodone Screen (NotDetected) Urine Methadone Screen (NotDetected) Ur Propoxyphene Screen (NotDetected) Ur Barbiturates Screen (NotDetected) U Tricyclic Antidepress (NotDetected) Ur Phencyclidine Scrn (NotDetected) Ur Amphetamines Screen (NotDetected) U Methamphetamines Scrn (NotDetected) U Benzodiazepines Scrn (NotDetected) Urine Cocaine Screen (NotDetected) U Marijuana (THC) Screen (NotDetected) Rheumatoid Factor (0-15) IU/mL BEE Screen (NEGATIVE) C. difficile (EIA) Intrp (Negative) Coronavirus (PCR) (Not Detected) HIV-1 Antibody (Non-Reactive) HIV Ag/Ab Interpret HIV p24 Antibody (Non-Reactive) HIV-2 Antibody (Non-Reactive) HIV P24 Antigen (Non-Reactive) 03/11/21 03/11/21 03/11/21 Range/Units 06:11 06:11 14:30 WBC 3.8 (3.8-10.6) k/uL RBC 4.56 (3.80-5.40) m/uL Hgb 13.2 (11.4-16.0) gm/dL Hct 37.8 (34.0-46.0) % MCV 83.0 (80.0-100.0) fL MCH 29.0 (25.0-35.0) pg MCHC 35.0 (31.0-37.0) g/dL RDW 11.7 (11.5-15.5) % Plt Count 133 L (150-450) k/uL MPV 7.9 Neutrophils % 69 % Lymphocytes % 16 % Monocytes % 10 % Eosinophils % 1 % Basophils % 1 % Neutrophils # 2.7 (1.3-7.7) k/uL Lymphocytes # 0.6 L (1.0-4.8) k/uL Monocytes # 0.4 (0-1.0) k/uL Eosinophils # 0.0 (0-0.7) k/uL Basophils # 0.0 (0-0.2) k/uL Hyperchromasia ESR (0-20) mm/hr Sodium 134 L 134 L (137-145) mmol/L Potassium 4.0 4.4 (3.5-5.1) mmol/L Chloride 107 108 H (98-107) mmol/L Carbon Dioxide 16 L 14 L (22-30) mmol/L Anion Gap 11 12 mmol/L BUN 9 5 L (7-17) mg/dL Creatinine 0.64 0.54 (0.52-1.04) mg/dL Est GFR (CKD-EPI)AfAm >90 >90 (>60 ml/min/1.73 sqM) Est GFR (CKD-EPI)NonAf >90 >90 (>60 ml/min/1.73 sqM) Glucose 57 L 58 L (74-99) mg/dL Plasma Lactic Acid Ariel (0.7-2.0) mmol/L Calcium 8.2 L 8.3 L (8.4-10.2) mg/dL Magnesium 1.8 (1.6-2.3) mg/dL Total Bilirubin 0.3 (0.2-1.3) mg/dL Conjugated Bilirubin (0.0-0.3) mg/dL Unconjugated Bilirubin (0.0-1.1) mg/dL Delta Bilirubin (0.0-0.2) mg/dL AST 44 H (14-36) U/L ALT 77 H (4-34) U/L Alkaline Phosphatase 55 (38-126) U/L Troponin I (0.000-0.034) ng/mL C-Reactive Protein (<1.0) mg/dL Total Protein 5.6 L (6.3-8.2) g/dL Albumin 3.3 L (3.5-5.0) g/dL Amylase (30-110) U/L Lipase (23-300) U/L Urine Color Urine Appearance (Clear) Urine pH (5.0-8.0) Ur Specific Keller (1.001-1.035) Urine Protein (Negative) Urine Glucose (UA) (Negative) Urine Ketones (Negative) Urine Blood (Negative) Urine Nitrite (Negative) Urine Bilirubin (Negative) Urine Urobilinogen (<2.0) mg/dL Ur Leukocyte Esterase (Negative) Urine RBC (0-5) /hpf Urine WBC (0-5) /hpf Ur Squamous Epith Cells (0-4) /hpf Urine Bacteria (None) /hpf Urine Mucus (None) /hpf Stool Lactoferrin (NEGATIVE) Stl Cryptosporidium Ag (Negative) Stool Giardia Source Stl Giardia Antigen (Negative) Urine Opiates Screen (NotDetected) Ur Oxycodone Screen (NotDetected) Urine Methadone Screen (NotDetected) Ur Propoxyphene Screen (NotDetected) Ur Barbiturates Screen (NotDetected) U Tricyclic Antidepress (NotDetected) Ur Phencyclidine Scrn (NotDetected) Ur Amphetamines Screen (NotDetected) U Methamphetamines Scrn (NotDetected) U Benzodiazepines Scrn (NotDetected) Urine Cocaine Screen (NotDetected) U Marijuana (THC) Screen (NotDetected) Rheumatoid Factor (0-15) IU/mL BEE Screen (NEGATIVE) C. difficile (EIA) Intrp (Negative) Coronavirus (PCR) (Not Detected) HIV-1 Antibody (Non-Reactive) HIV Ag/Ab Interpret HIV p24 Antibody (Non-Reactive) HIV-2 Antibody (Non-Reactive) HIV P24 Antigen (Non-Reactive) 03/11/21 03/12/21 03/12/21 Range/Units 14:30 06:43 06:43 WBC 3.8 (3.8-10.6) k/uL RBC 4.89 (3.80-5.40) m/uL Hgb 14.3 (11.4-16.0) gm/dL Hct 40.3 (34.0-46.0) % MCV 82.5 (80.0-100.0) fL MCH 29.3 (25.0-35.0) pg MCHC 35.5 (31.0-37.0) g/dL RDW 11.7 (11.5-15.5) % Plt Count 163 (150-450) k/uL MPV 7.8 Neutrophils % 68 % Lymphocytes % 15 % Monocytes % 12 % Eosinophils % 2 % Basophils % 0 % Neutrophils # 2.5 (1.3-7.7) k/uL Lymphocytes # 0.5 L (1.0-4.8) k/uL Monocytes # 0.5 (0-1.0) k/uL Eosinophils # 0.1 (0-0.7) k/uL Basophils # 0.0 (0-0.2) k/uL Hyperchromasia ESR (0-20) mm/hr Sodium (137-145) mmol/L Potassium (3.5-5.1) mmol/L Chloride (98-107) mmol/L Carbon Dioxide (22-30) mmol/L Anion Gap mmol/L BUN (7-17) mg/dL Creatinine (0.52-1.04) mg/dL Est GFR (CKD-EPI)AfAm (>60 ml/min/1.73 sqM) Est GFR (CKD-EPI)NonAf (>60 ml/min/1.73 sqM) Glucose (74-99) mg/dL Plasma Lactic Acid Ariel (0.7-2.0) mmol/L Calcium (8.4-10.2) mg/dL Magnesium (1.6-2.3) mg/dL Total Bilirubin (0.2-1.3) mg/dL Conjugated Bilirubin (0.0-0.3) mg/dL Unconjugated Bilirubin (0.0-1.1) mg/dL Delta Bilirubin (0.0-0.2) mg/dL AST (14-36) U/L ALT (4-34) U/L Alkaline Phosphatase (38-126) U/L Troponin I (0.000-0.034) ng/mL C-Reactive Protein 2.0 H (<1.0) mg/dL Total Protein (6.3-8.2) g/dL Albumin (3.5-5.0) g/dL Amylase (30-110) U/L Lipase (23-300) U/L Urine Color Urine Appearance (Clear) Urine pH (5.0-8.0) Ur Specific Keller (1.001-1.035) Urine Protein (Negative) Urine Glucose (UA) (Negative) Urine Ketones (Negative) Urine Blood (Negative) Urine Nitrite (Negative) Urine Bilirubin (Negative) Urine Urobilinogen (<2.0) mg/dL Ur Leukocyte Esterase (Negative) Urine RBC (0-5) /hpf Urine WBC (0-5) /hpf Ur Squamous Epith Cells (0-4) /hpf Urine Bacteria (None) /hpf Urine Mucus (None) /hpf Stool Lactoferrin (NEGATIVE) Stl Cryptosporidium Ag (Negative) Stool Giardia Source Stl Giardia Antigen (Negative) Urine Opiates Screen (NotDetected) Ur Oxycodone Screen (NotDetected) Urine Methadone Screen (NotDetected) Ur Propoxyphene Screen (NotDetected) Ur Barbiturates Screen (NotDetected) U Tricyclic Antidepress (NotDetected) Ur Phencyclidine Scrn (NotDetected) Ur Amphetamines Screen (NotDetected) U Methamphetamines Scrn (NotDetected) U Benzodiazepines Scrn (NotDetected) Urine Cocaine Screen (NotDetected) U Marijuana (THC) Screen (NotDetected) Rheumatoid Factor (0-15) IU/mL BEE Screen (NEGATIVE) C. difficile (EIA) Intrp (Negative) Coronavirus (PCR) (Not Detected) HIV-1 Antibody Non-Reactive (Non-Reactive) HIV Ag/Ab Interpret HIV p24 Antibody Non-Reactive (Non-Reactive) HIV-2 Antibody Non-Reactive (Non-Reactive) HIV P24 Antigen Non-Reactive (Non-Reactive) 03/12/21 03/12/21 03/12/21 Range/Units 06:43 06:43 06:43 WBC (3.8-10.6) k/uL RBC (3.80-5.40) m/uL Hgb (11.4-16.0) gm/dL Hct (34.0-46.0) % MCV (80.0-100.0) fL MCH (25.0-35.0) pg MCHC (31.0-37.0) g/dL RDW (11.5-15.5) % Plt Count (150-450) k/uL MPV Neutrophils % % Lymphocytes % % Monocytes % % Eosinophils % % Basophils % % Neutrophils # (1.3-7.7) k/uL Lymphocytes # (1.0-4.8) k/uL Monocytes # (0-1.0) k/uL Eosinophils # (0-0.7) k/uL Basophils # (0-0.2) k/uL Hyperchromasia ESR 2 (0-20) mm/hr Sodium (137-145) mmol/L Potassium (3.5-5.1) mmol/L Chloride (98-107) mmol/L Carbon Dioxide (22-30) mmol/L Anion Gap mmol/L BUN (7-17) mg/dL Creatinine (0.52-1.04) mg/dL Est GFR (CKD-EPI)AfAm (>60 ml/min/1.73 sqM) Est GFR (CKD-EPI)NonAf (>60 ml/min/1.73 sqM) Glucose (74-99) mg/dL Plasma Lactic Acid Ariel (0.7-2.0) mmol/L Calcium (8.4-10.2) mg/dL Magnesium (1.6-2.3) mg/dL Total Bilirubin (0.2-1.3) mg/dL Conjugated Bilirubin (0.0-0.3) mg/dL Unconjugated Bilirubin (0.0-1.1) mg/dL Delta Bilirubin (0.0-0.2) mg/dL AST (14-36) U/L ALT (4-34) U/L Alkaline Phosphatase (38-126) U/L Troponin I (0.000-0.034) ng/mL C-Reactive Protein (<1.0) mg/dL Total Protein (6.3-8.2) g/dL Albumin (3.5-5.0) g/dL Amylase (30-110) U/L Lipase (23-300) U/L Urine Color Urine Appearance (Clear) Urine pH (5.0-8.0) Ur Specific Keller (1.001-1.035) Urine Protein (Negative) Urine Glucose (UA) (Negative) Urine Ketones (Negative) Urine Blood (Negative) Urine Nitrite (Negative) Urine Bilirubin (Negative) Urine Urobilinogen (<2.0) mg/dL Ur Leukocyte Esterase (Negative) Urine RBC (0-5) /hpf Urine WBC (0-5) /hpf Ur Squamous Epith Cells (0-4) /hpf Urine Bacteria (None) /hpf Urine Mucus (None) /hpf Stool Lactoferrin (NEGATIVE) Stl Cryptosporidium Ag (Negative) Stool Giardia Source Stl Giardia Antigen (Negative) Urine Opiates Screen (NotDetected) Ur Oxycodone Screen (NotDetected) Urine Methadone Screen (NotDetected) Ur Propoxyphene Screen (NotDetected) Ur Barbiturates Screen (NotDetected) U Tricyclic Antidepress (NotDetected) Ur Phencyclidine Scrn (NotDetected) Ur Amphetamines Screen (NotDetected) U Methamphetamines Scrn (NotDetected) U Benzodiazepines Scrn (NotDetected) Urine Cocaine Screen (NotDetected) U Marijuana (THC) Screen (NotDetected) Rheumatoid Factor <4 (0-15) IU/mL BEE Screen NEGATIVE (NEGATIVE) C. difficile (EIA) Intrp (Negative) Coronavirus (PCR) (Not Detected) HIV-1 Antibody (Non-Reactive) HIV Ag/Ab Interpret HIV p24 Antibody (Non-Reactive) HIV-2 Antibody (Non-Reactive) HIV P24 Antigen (Non-Reactive) Disposition <Hong Schmitt - Last Filed: 03/10/21 13:40> <Minda Chavira - Last Filed: 03/20/21 01:48> Clinical Impression: Dehydration, Nausea vomiting and diarrhea, Tachycardia, Dizziness Disposition: ADMITTED IP TO THIS HOSP Condition: Fair
[2021-03-10 11:21] LABS: Basophils % (A) 0 %; Eosinophils % (A) 1 %; HCT 42.6 % (34.0-46.0); HGB 15.7 gm/dL (11.4-16.0); Hyperchromasia Slight; Lymphocytes # (A) 0.5 k/uL (1.0-4.8); Lymphocytes % (A) 10 %; MCH 30.3 pg (25.0-35.0); MCHC 36.9 g/dL (31.0-37.0); Mean Platelet Volume 8.2; Monocytes # (A) 0.5 k/uL (0-1.0); Monocytes % (A) 10 %; Neutrophils # (A) 3.8 k/uL (1.3-7.7); Neutrophils % (A) 76 %; Platelet Count 137 k/uL (150-450); RBC 5.19 m/uL (3.80-5.40); RDW 11.6 % (11.5-15.5)
[2021-03-10 11:27] LABS: Appearance,Urine Cloudy (Clear); Bacteria,Urine Occasional /hpf; Bilirubin,Urine 1+ (Negative); Blood,Urine Trace (Negative); Color,Urine Yellow; Glucose,Urine (UA) Negative (Negative); Ketones,Urine 4+ (Negative); Leukocyte Esterase,Urine Negative (Negative); Mucus,Urine Many /hpf; Nitrite,Urine Negative (Negative); Protein,Urine 1+ (Negative); RBC,Urine 3 /hpf (0-5); Specific Gravity,Urine 1.024 (1.001-1.035); Squamous Epithelial Cell,Urine 8 /hpf (0-4); Urobilinogen,Urine <2.0 mg/dL (<2.0); WBC,Urine 6 /hpf (0-5)
[2021-03-10 11:34] LABS: ALT 125 U/L (4-34); AST 72 U/L (14-36); African American GFR (CKD) >90 (>60 ml/min/1.73 sqM); Albumin 3.9 g/dL (3.5-5.0); Alkaline Phosphatase 58 U/L (38-126); Amylase 51 U/L (30-110); Anion Gap 11 mmol/L; Blood Urea Nitrogen 9 mg/dL (7-17); Calcium 9.2 mg/dL (8.4-10.2); Carbon Dioxide 23 mmol/L (22-30); Chloride 98 mmol/L (98-107); Glucose 81 mg/dL (74-99); Lipase 113 U/L (23-300); Non-African American GFR(CKD) >90 (>60 ml/min/1.73 sqM); Potassium 3.3 mmol/L (3.5-5.1); Sodium 132 mmol/L (137-145); Total Bilirubin 0.4 mg/dL (0.2-1.3); Total Protein 6.3 g/dL (6.3-8.2)
--- NOTE | 2021-03-10 12:58 | CT ---
EXAMINATION TYPE: CT abdomen pelvis w con DATE OF EXAM: 03/10/2021 COMPARISON: Ultrasound abdomen 07/25/2014 and 02/25/2018. Pelvic ultrasound 05/14/2016. HISTORY: Abdominal pain, nausea, heartburn and diarrhea x [address] DLP: 786.8 mGycm Automated exposure control for dose reduction was used. TECHNIQUE: Helical acquisition of images was performed from the lung bases through the pelvis. Delay ed images obtained through the level of the kidneys. CONTRAST: Performed without Oral Contrast and with IV Contrast, patient injected with 100 mL of Isovue 300. FINDINGS: LUNG BASES: Normal. LIVER: Redemonstrated right hepatic simple cyst and too small to characterize hypodense lesions. BILIARY SYSTEM: Normal. PANCREAS: Normal. SPLEEN: Normal. ADRENALS: Normal. KIDNEYS: Normal. BOWEL: No obstruction or thickening. PERITONEUM: No pneumoperitoneum. No free fluid. LYMPH NODES: No lymphadenopathy. PELVIS: Nondistended urinary bladder. Status post hysterectomy. Normal bilateral ovaries and adnexa. VASCULATURE: No abdominal aortic aneurysm. MUSCULOSKELETAL: Degenerative changes of the spine. IMPRESSION: No acute abdominopelvic process.
[2021-03-10] MEDS ORDERED: NALOXONE 0.4 MG/ML 1 ML VIAL IV PRN (13:42)
[2021-03-10] MEDS ORDERED: PANTOPRAZOLE 40 MG/10 ML VIAL IVP STA (13:43)
[2021-03-10] MEDS ORDERED: ONDANSETRON 4 MG/2 ML VIAL IVP PRN (13:43)
[2021-03-10] MEDS ORDERED: SODIUM CHLORIDE 0.9% 1,000 ML IV SCH (13:45)
[2021-03-10] MEDS ORDERED: Potassium Replacement Protocol 1 EACH MISC MISCELLANE PRN (18:15)
[2021-03-10] MEDS ORDERED: Magnesium Replacement Protocol 1 EACH MISC MISCELLANE PRN (18:15)
[2021-03-10 18:57] LABS: Albumin 3.7 g/dL (3.5-5.0); Bilirubin,Unconjugated 0.4 mg/dL (0.0-1.1); Total Bilirubin 0.4 mg/dL (0.2-1.3); Total Protein 5.9 g/dL (6.3-8.2)
--- NOTE | 2021-03-10 19:16 | HP ---
HISTORY AND PHYSICAL DATE OF SERVICE: 03/10/2021 CHIEF COMPLAINT: Diarrhea, abdominal discomfort, nausea, weakness. HISTORY OF PRESENT ILLNESS: This 51-year-old woman with a past medical history of GERD, hypertension, hypothyroidism, history hysterectomy, tubal ligation with postoperative nausea and vomiting, being followed by Dr. Sampson in the outpatient setting had diarrhea about a few days ago after eating from a restaurant where the patient had a Caesar salad. The Caesar salad was also had by other individuals who are not sick. The patient had multiple episodes of diarrhea. Subsequently, the patient felt nauseous and some abdominal pain. Patient came to the emergency room and was given IV fluids and symptomatically treated. [place] slightly better but at home the patient continued to have diarrhea almost every hour, watery diarrhea without any blood and without any abdominal pain. The patient also had some vomiting and nausea also. Because of increasing difficulty the patient came to [facility] and was admitted for further evaluation and treatment. There is no history of any fever or rigors. No headache or loss of consciousness. CT scan of the abdomen is reported as normal and platelets are 137, sodium 130, potassium 3.3. LFT, AST and ALT slightly elevated. There is no history of fever, rigors, chills at this time. The patient has completed two doses of COVID vaccine and there is no history of any contact with any Covid infections recently. PAST MEDICAL HISTORY: GERD, hypertension, hypothyroidism, hysterectomy, tubal ligation. MEDICATIONS: Norvasc, progesterone, Zofran, omeprazole, estradiol. Noted doses are reviewed. ALLERGIES: Erythromycin, penicillin, Bactrim. FAMILY HISTORY: No history of heart disease or strokes in the family. SOCIAL HISTORY: No history of smoking. No alcohol intake. REVIEW OF SYSTEMS: ENT: No diminished vision. CARDIOVASCULAR: No angina. RESPIRATORY: No cough or hemoptysis. GI: As mentioned earlier. : No dysuria. NERVOUS SYSTEM: No numbness or weakness. ALLERGY: No asthma or hayfever. MUSCULOSKELETAL: As mentioned earlier. HEMATOLOGY/ONCOLOGY: No history. ENDOCRINE: No diabetes or hypothyroidism. CONSTITUTIONAL: As mentioned earlier. DERMATOLOGY: Negative. RHEUMATOLOGY: Negative. PSYCHIATRY: As mentioned earlier. PHYSICAL EXAMINATION: Alert and oriented x3. Pulse 87, blood pressure 119/70, respirations 18, temperature 98.2, pulse ox 98% on room air. HEENT: Unremarkable. Conjunctivae normal. NECK: No JVD. CARDIAC: S1 and S2 muffled. LUNGS: Breath sounds diminished in the bases. No rhonchi no crackles. Otherwise, oral mucosa dry. ABDOMEN: Soft, nontender. No mass palpable. LEGS: No edema, no swelling. NERVOUS SYSTEM: Higher functions as mentioned earlier. Moves all 4 limbs. No focal motor or sensory deficit. LYMPHATICS: No lymph node palpable in the neck or axillae. JOINTS: No deforming arthropathy. LABS: WBC 5, hemoglobin 15.7, platelets 137. Sodium 132, potassium 3.3. Other labs are noted. ASSESSMENT: 1. Acute gastroenteritis and continued diarrhea. 2. Severe dehydration present on admission secondary to diarrhea and diminished p.o. intake. 3. Hyponatremia. 4. Hypokalemia. 5. Increased AST and ALT, acute hepatitis. 6. Thrombocytopenia. 7. Abnormal urine exam with 4% ketones. 8. History of GERD. 9. Hypertension. 10.Hypothyroidism. 11.History of hysterectomy. 12.History of tubal ligation. 13.History of thyroid surgery. 14.Full code. RECOMMENDATIONS: In this 51-year-old woman who presented with multiple complex medical issues, at this time I recommend to continue the current management and symptomatic treatment. IV fluids. Supplement potassium. Check magnesium and supplement magnesium as well. DVT prophylaxis. Proton pump inhibitors. I would also check stool for C difficile and ova parasite. Covid 19 also will be checked. Overall prognosis guarded because of multiple complex medical issues. Repeat labs will be ordered. Home medication will be repeated. MMODL / IJN: [id number] /
[2021-03-10 20:17] LABS: Amphetamine Screen,Urine Not Detected (NotDetected); Barbiturate Screen,Urine Not Detected (NotDetected); Benzodiazepines Screen,Urine Not Detected (NotDetected); Cocaine Screen,Urine Not Detected (NotDetected); Methadone Screen, Urine Not Detected (NotDetected); Opiate Screen,Urine Not Detected (NotDetected); Oxycodone Screen, Urine Not Detected (NotDetected); Phencyclidine Screen,Urine Not Detected (NotDetected); Tricyclic Antidepressant,Urine Not Detected (NotDetected); Urn Cannabinoid Scrn Not Detected (NotDetected)
[2021-03-10] MEDS: POTASSIUM CHLORIDE ER 20 MEQ TAB.ER PO SCH ×2 (20:20→21:22)
[2021-03-10] MEDS: 0.9% NACL WITH KCL 40 MEQ/L 1,000 ML IV SCH (20:22)
[2021-03-10] MEDS: HEPARIN SODIUM,PORCINE/PF 5,000 UNIT/0.5 ML SYRINGE SQ SCH (20:29)
[2021-03-10] MEDS: MELATONIN 3 MG TABLET PO PRN (21:22)
[2021-03-11] MEDS: 0.9% NACL WITH KCL 40 MEQ/L 1,000 ML IV SCH (06:16)
[2021-03-11 06:30] LABS: Basophils % (A) 1 %; Eosinophils % (A) 1 %; HCT 37.8 % (34.0-46.0); HGB 13.2 gm/dL (11.4-16.0); Lymphocytes # (A) 0.6 k/uL (1.0-4.8); Lymphocytes % (A) 16 %; Mean Platelet Volume 7.9; Monocytes # (A) 0.4 k/uL (0-1.0); Monocytes % (A) 10 %; Neutrophils # (A) 2.7 k/uL (1.3-7.7); Neutrophils % (A) 69 %; Platelet Count 133 k/uL (150-450); RBC 4.56 m/uL (3.80-5.40); RDW 11.7 % (11.5-15.5); WBC 3.8 k/uL (3.8-10.6)
[2021-03-11 06:56] LABS: African American GFR (CKD) >90 (>60 ml/min/1.73 sqM); Anion Gap 11 mmol/L; Blood Urea Nitrogen 9 mg/dL (7-17); Calcium 8.2 mg/dL (8.4-10.2); Carbon Dioxide 16 mmol/L (22-30); Chloride 107 mmol/L (98-107); Glucose 57 mg/dL (74-99); Magnesium 1.8 mg/dL (1.6-2.3); Non-African American GFR(CKD) >90 (>60 ml/min/1.73 sqM); Sodium 134 mmol/L (137-145)
[2021-03-11] MEDS ORDERED: PANTOPRAZOLE 40 MG/10 ML VIAL IVP SCH (09:00)
[2021-03-11] MEDS: HEPARIN SODIUM,PORCINE/PF 5,000 UNIT/0.5 ML SYRINGE SQ SCH ×2 (10:08→20:57)
[2021-03-11] MEDS: ESTRADIOL 0.1 MG/GM VAGINAL CREAM 42.5 GM TUBE VAGINAL SCH (10:09)
[2021-03-11] MEDS: amLODIPine 5 MG TAB PO SCH (10:09)
[2021-03-11] MEDS: PANTOPRAZOLE 40 MG/10 ML VIAL IVP SCH ×2 (10:09→20:52)
[2021-03-11] MEDS: lisinopriL 10 MG TAB PO SCH (10:09)
[2021-03-11] MEDS: D5W WITH KCL 20 MEQ/L 1,000 ML IV SCH ×2 (14:29→22:23)
--- NOTE | 2021-03-11 14:37 | PN ---
PROGRESS NOTE DATE OF SERVICE: 03/11/2021 This 51-year-old woman who was admitted with acute gastroenteritis and continued diarrhea The patient reports the patient apparently drinking some rather old, the last batch of water, which she obtained from [employer]. Otherwise, the patient is also having some . No chest pain. No palpitations. PAST MEDICAL HISTORY: Reviewed. REVIEW OF SYSTEMS: CARDIOVASCULAR: No angina. RESPIRATION: As mentioned earlier. GI: As mentioned earlier. : As mentioned earlier. NERVOUS SYSTEM: No numbness or weakness. MEDICATIONS: Include Norvasc, , Zestril, melatonin, replacements Zofran doses reviewed and other medications were also reviewed. PHYSICAL EXAMINATION: Pulse 90, blood pressure 130/70, respirations 16, temperature 97.2, pulse ox 97 percent room air. HEENT: Conjunctivae normal. NECK: No JVD. CARDIOVASCULAR: S1, S2 muffled. RESPIRATORY SYSTEM: Breath sounds diminished at the bases, scattered rhonchi and crackles. ABDOMEN: Soft, nontender. LEGS: No edema. No swelling. NERVOUS SYSTEM: No focal deficits. LABS: WBC 3.8, hemoglobin 13.2, sodium 134. CO2 16. ASSESSMENT: 1. Acute gastroenteritis and continued diarrhea, possibly secondary to Cryptosporidium. 2. Severe dehydration present on admission secondary to diarrhea, diminished p.o. intake. 3. Metabolic acidosis secondary to diarrhea. 4. Hyponatremia. 5. Hypokalemia. 6. Increased AST, ALT, acute hepatitis. 7. Thrombocytopenia. 8. Abnormal urine exam with 4+ ketones. 9. History of GERD. 10.Hypothyroidism. 11.Hysterectomy. 12.History of tubal ligation. 13.History of thyroid surgery. 14.FULL CODE. RECOMMENDATIONS AND DISCUSSION: To continue current management and treatment continue with IV fluids. Infectious disease evaluation. Currently, it is unclear how the patient had Cryptosporidium. Apparently there was no outbreak situation, but Infection Control will be notified and repeat labs will be ordered. Further recommendations to follow. See orders for this. MMODL / IJN: [id number] / MTDD
[2021-03-11 15:29] LABS: ALT 77 U/L (4-34); AST 44 U/L (14-36); African American GFR (CKD) >90 (>60 ml/min/1.73 sqM); Albumin 3.3 g/dL (3.5-5.0); Alkaline Phosphatase 55 U/L (38-126); Anion Gap 12 mmol/L; Blood Urea Nitrogen 5 mg/dL (7-17); Calcium 8.3 mg/dL (8.4-10.2); Carbon Dioxide 14 mmol/L (22-30); Chloride 108 mmol/L (98-107); Glucose 58 mg/dL (74-99); Non-African American GFR(CKD) >90 (>60 ml/min/1.73 sqM); Potassium 4.4 mmol/L (3.5-5.1); Sodium 134 mmol/L (137-145); Total Bilirubin 0.3 mg/dL (0.2-1.3); Total Protein 5.6 g/dL (6.3-8.2)
[2021-03-11] MEDS: CHOLESTYRAMINE (WITH SUGAR) 4 GM PACKET PO SCH (17:55)
[2021-03-11] MEDS ORDERED: ACETAMINOPHEN TAB 325 MG TAB PO PRN (18:56)
[2021-03-11] MEDS: MELATONIN 3 MG TABLET PO PRN (22:23)
--- NOTE | 2021-03-11 22:55 | P.CONS ---
History of Present Illness - Reason for Consult Consult date: 03/11/21 Cryptosporidium enteritis Requesting physician: Geeta Boggs - Chief Complaint Diarrhea x 4 days - History of Present Illness Patient is a 51-year-old female past medical he significant for hypertension dystrophy reflux disease patient presented to the ER yesterday morning for evaluation of nausea heartburn and diarrhea patient symptoms started about 5 days on which started having intractable diarrhea with multiple loose stools no blood or mucus in the stools patient has felt nauseated with dry heaves but did not have any vomiting and the patient did not have any significant abdominal pain until today with the patient did have some crampy abdominal pain intensity 4-5 out of 10 and no radiation the patient denies any fever or chills patient did mention that she did picked up the last water bottle from the [employer] shelf and the water tasted funny but no other unusual activity and no family members are sick with similar illnesses on presentation to the hospital the patient was afebrile and no fever has been recorded during this admission patient had did have a normal white count with some lymphopenia potassium was low on admission subsequent improved BUN/creatinine was normal liver exams were mildly elevated urine was negative patient did have stool studies and came back positive for Cryptosporidium urine testing was negative C. difficile was negative [place] PCR was negative patient had did have a abdominal pelvis CT which was reported negative infectious was consulted for further management with a stool showing cryptosporidium. Review of Systems Positive point has been mentioned in the HPI rest of the systems are negative Past Medical History Past Medical History: GERD/Reflux, Hypertension, Thyroid Disorder History of Any Multi-Drug Resistant Organisms: None Reported Past Surgical History: Hysterectomy, Tubal Ligation Additional Past Surgical History / Comment(s): thyroid surgery Past Anesthesia/Blood Transfusion Reactions: Postoperative Nausea & Vomiting (PONV) Past Psychological History: No Psychological Hx Reported Smoking Status: Never smoker Past Alcohol Use History: Occasional Additional Past Alcohol Use History / Comment(s): STARTED AT AGE 18 QUIT AT AGE 20 SMOKED 1/2PPD Past Drug Use History: None Reported - Past Family History Mother Family Medical History: No Reported History Medications and Allergies Home Medications Medication Instructions Recorded Confirmed Type Ondansetron Odt [Zofran Odt] 4 mg PO Q8HR PRN #10 tab 03/08/21 03/10/21 Rx Benazepril [Lotensin] 10 mg PO DAILY 03/10/21 03/10/21 History Estradiol Cream [Estrace Cream 1 gm VAGINAL DAILY 03/10/21 03/10/21 History 0.01%] Omeprazole 20 mg PO BID 03/10/21 03/10/21 History Progesterone, Micronized 200 mg PO Q48H 03/10/21 03/10/21 History [Progesterone] amLODIPine [Norvasc] 5 mg PO DAILY 03/10/21 03/10/21 History Allergies Allergy/AdvReac Type Severity Reaction Status Date / Time erythromycin base Allergy Abdominal Verified 03/10/21 17:16 Pain Penicillins Allergy Rash/Hives Verified 03/10/21 17:16 sulfamethoxazole Allergy Rash/Hives Verified 03/10/21 17:16 [From Bactrim] trimethoprim [From Bactrim] Allergy Rash/Hives Verified 03/10/21 17:16 Physical Exam Vitals: Vital Signs Temp Pulse Pulse Pulse Resp BP BP 03/11/21 08:15 97.6 F 90 16 113/70 03/11/21 04:02 98.2 F 03/11/21 02:00 99.1 F 101 H 16 115/76 03/10/21 19:58 98.2 F 87 18 120/77 03/10/21 16:48 98.2 F 87 18 119/78 03/10/21 14:03 97.9 F 87 18 113/70 Pulse Ox 03/11/21 08:15 97 03/11/21 04:02 03/11/21 02:00 96 03/10/21 19:58 97 03/10/21 16:48 98 03/10/21 14:03 98 Intake and Output 03/10/21 03/11/21 03/11/21 22:59 06:59 14:59 Intake Total 220 Output Total 706 077 8919 Balance -80 -550 -1050 Intake: Oral 220 Output: Urine 100 300 550 Stool 200 250 500 Other: Voiding Method Toilet # Voids 1 # Bowel Movements 60 GENERAL DESCRIPTION: Middle-aged female lying in bed, no distress. No tachypnea or accessory muscle of respiration use. HEENT: Shows Pallor , no scleral icterus. Oral mucous membrane is dry. No pharyngeal erythema or thrush NECK: Trachea central, no thyromegaly. LUNGS: Unlabored breathing. Clear to auscultation anteriorly. No wheeze or crackle. HEART: S1, S2, regular rate and rhythm. No loud murmur ABDOMEN: Soft, no tenderness , guarding or rigidity, no organomegaly EXTREMITIES: No edema of feet. SKIN: No rash, no masses palpable. NEUROLOGICAL: The patient is awake, alert, oriented x3, mood and affect normal. Results CBC & Chem 7: 03/11/21 06:11 03/11/21 14:30 Labs: Abnormal Lab Results - Last 24 Hours (Table) 03/10/21 03/10/21 03/10/21 Range/Units 10:40 18:15 18:15 Plt Count (150-450) k/uL Lymphocytes # (1.0-4.8) k/uL Sodium (137-145) mmol/L Carbon Dioxide (22-30) mmol/L Glucose (74-99) mg/dL Calcium (8.4-10.2) mg/dL AST 61 H (14-36) U/L ALT 101 H (4-34) U/L Total Protein 5.9 L (6.3-8.2) g/dL Urine Appearance Cloudy H (Clear) Urine Protein 1+ H (Negative) Urine Ketones 4+ H (Negative) Urine Blood Trace H (Negative) Urine Bilirubin 1+ H (Negative) Urine WBC 6 H (0-5) /hpf Ur Squamous Epith Cells 8 H (0-4) /hpf Urine Bacteria Occasional H (None) /hpf Urine Mucus Many H (None) /hpf Stool Lactoferrin POSITIVE A (NEGATIVE) Stl Cryptosporidium Ag (Negative) 03/10/21 03/11/21 03/11/21 Range/Units 18:15 06:11 06:11 Plt Count 133 L (150-450) k/uL Lymphocytes # 0.6 L (1.0-4.8) k/uL Sodium 134 L (137-145) mmol/L Carbon Dioxide 16 L (22-30) mmol/L Glucose 57 L (74-99) mg/dL Calcium 8.2 L (8.4-10.2) mg/dL AST (14-36) U/L ALT (4-34) U/L Total Protein (6.3-8.2) g/dL Urine Appearance (Clear) Urine Protein (Negative) Urine Ketones (Negative) Urine Blood (Negative) Urine Bilirubin (Negative) Urine WBC (0-5) /hpf Ur Squamous Epith Cells (0-4) /hpf Urine Bacteria (None) /hpf Urine Mucus (None) /hpf Stool Lactoferrin (NEGATIVE) Stl Cryptosporidium Ag Positive A (Negative) Microbiology - Last 24 Hours (Table) 03/10/21 18:15 Stool Culture - Preliminary Stool 03/10/21 18:15 Urine Culture - Preliminary Urine,Clean Catch Assessment and Plan Assessment: -patient presented to hospital with acute diarrhea likely infectious etiology in this patient stool positive for Cryptosporidium patient currently with no history of immunosuppressive disease and no risk factor for HIV in monogomas relationship not running any fever and no evidence of significant co litis on the CT hopefully patient should be able to recover from this with symptomatic treatment with no need for antiprotozoal. (1) Diarrhea due to cryptosporidium Current Visit: Yes Status: Acute Code(s): A07.2 - CRYPTOSPORIDIOSIS SNOMED Code(s): 39840953 Plan: 1-[place] treatment for Cryptosporidium in immunocompetent patient will be Nitazoxanide 500 mg twice a day for 3 days unfortunately the drug is not available at this pharmacy and cannot be borrowed from any of the [facility] per discussion with pharmacist 2-we will observe patient over next 24 hours with Questran and IVF if improvement to continue with symptomatic treatment if not we may need to arrange for Nitazoxanide , this was discussed with the pharmacist 3-for now IV fluid and Questran 4 g every 12 hours 4-contact isolation We will follow on clinical condition and cultures to further adjust medication if needed Thank you for this consultation we will follow the patient along with you Time with Patient: Greater than 30
[2021-03-12 01:47] LABS: HIV 2 AB Non-Reactive (Non-Reactive); HIV AB P24 Non-Reactive (Non-Reactive); HIV P24 AG Non-Reactive (Non-Reactive)
[2021-03-12 07:04] LABS: Basophils % (A) 0 %; Eosinophils # (A) 0.1 k/uL (0-0.7); Eosinophils % (A) 2 %; HCT 40.3 % (34.0-46.0); HGB 14.3 gm/dL (11.4-16.0); Lymphocytes # (A) 0.5 k/uL (1.0-4.8); Lymphocytes % (A) 15 %; MCH 29.3 pg (25.0-35.0); MCHC 35.5 g/dL (31.0-37.0); MCV 82.5 fL (80.0-100.0); Mean Platelet Volume 7.8; Monocytes # (A) 0.5 k/uL (0-1.0); Monocytes % (A) 12 %; Neutrophils # (A) 2.5 k/uL (1.3-7.7); Neutrophils % (A) 68 %; Platelet Count 163 k/uL (150-450); RBC 4.89 m/uL (3.80-5.40); RDW 11.7 % (11.5-15.5); WBC 3.8 k/uL (3.8-10.6)
[2021-03-12] MEDS: D5W WITH KCL 20 MEQ/L 1,000 ML IV SCH ×2 (08:35→18:13)
[2021-03-12] MEDS: amLODIPine 5 MG TAB PO SCH (08:36)
[2021-03-12] MEDS: PANTOPRAZOLE 40 MG/10 ML VIAL IVP SCH ×2 (08:36→20:28)
[2021-03-12] MEDS: lisinopriL 10 MG TAB PO SCH (08:36)
[2021-03-12] MEDS: ESTRADIOL 0.1 MG/GM VAGINAL CREAM 42.5 GM TUBE VAGINAL SCH (08:37)
[2021-03-12] MEDS: CHOLESTYRAMINE (WITH SUGAR) 4 GM PACKET PO SCH ×2 (10:12→18:13)
--- NOTE | 2021-03-12 14:20 | PN ---
PROGRESS NOTE DATE OF SERVICE: 03/12/2021 INTERVAL HISTORY: This 51-year-old woman who was admitted with significant diarrhea, abdominal cramping, was found to have acute Cryptosporidium. Dr. Dixon is recommending a course of nitazoxanide 500 mg twice daily for 3 days. The patient still has multiple episodes diarrhea, almost every hourly, at this time. Questran has been initiated. PHYSICAL EXAMINATION: Patient is alert, oriented x4. Pulse 110, blood pressure 130/80, respiration 16, temperature 97.8, pulse ox 98% on room air. HEENT: Conjunctivae normal. NECK: Normal. CARDIAC: S1, S2, normal. RESPIRATION: Breath sounds diminished at the bases. No rhonchi, no crackles. ABDOMEN: Soft, nontender. No mass. LEGS: Are no edema. NERVOUS SYSTEM: No focal deficits. LABS: Lymphocytes is a 0.6, sodium 134. CO2 is 14, calcium is 8.3, AST, ALT noted. C- reactive protein is 2. Albumin is 2.3. HIV is negative. ASSESSMENT: 1. Acute gastroenteritis and continued, diarrhea possibly secondary to Cryptosporidium. 2. Severe dehydration present on admission secondary to diarrhea and with diminished p.o. intake. 3. Metabolic acidosis secondary to diarrhea. 4. Hyponatremia. 5. Hypokalemia. 6. Lymphopenia. 7. Increased AST, ALT, acute hepatitis. 8. Thrombocytopenia. 9. Abnormal urine exam with 4+ ketones, present on admission. 10.History of gastroesophageal reflux disease. 11.Hypothyroidism. 12.History of hysterectomy. 13.History of tubal ligation. 14.History of thyroid surgery. 15.FULL CODE. RECOMMENDATIONS AND DISCUSSION: Recommend to continue current management and treatment otherwise try to obtain the antiparasitic medications through pharmacy. Closely follow with Infectious Disease. The patient appears to be immunocompetent. We will continue with blood work and I would also recommend hematology/oncology evaluation for further evaluation lymphopenia, which is also observed. Prognosis guarded, but currently the patient is stable. Continue to monitor. Further recommendation to follow. MMODL / IJN: [id number] /
--- NOTE | 2021-03-12 18:45 | PN ---
PROGRESS NOTE DATE OF SERVICE: 03/12/2021 REASON FOR FOLLOWUP: Bacterial gastroenteritis secondary to Cryptosporidium. INTERVAL HISTORY: Patient is afebrile. The patient has been complaining of persistent diarrhea. Her abdominal pain has improved. However, now complaining of blood in her stools. The patient denies any chest pain or shortness of breath or cough. No vomiting. Slightly tachycardic. PHYSICAL EXAMINATION: Blood pressure 124/82 with a pulse of 140. Temperature 97.9. She is 99% on room air. General description is a middle-aged female up in the bed in no distress. Respiratory system: Unlabored breathing, decreased intensity of breath sounds. No wheeze. Heart: S1, S2. Regular rate. Abdomen: Soft. No tenderness. No guarding. No rigidity. Extremities: No edema of the feet. LABS: Hemoglobin is 14.8, white count 3.8. BUN of 5, creatinine 0.54. DIAGNOSTIC IMPRESSION AND PLAN: Patient admitted to the hospital with acute diarrhea, infectious etiology. Stool positive for Cryptosporidium. The patient did not have any obvious immunosuppression, however, did have significant disease and did not respond to the symptomatic treatment with slight worsening and now getting tachycardic. We did discuss with pharmacy for obtaining which is the drug of choice for it. Hopefully will be able to start the treatment. Continue with Questran and symptomatic relief and monitor clinical course closely. MMODL / IJN: [id number] /
[2021-03-12] MEDS: HEPARIN SODIUM,PORCINE/PF 5,000 UNIT/0.5 ML SYRINGE SQ SCH ×2 (19:35→20:28)
[2021-03-12] MEDS: MELATONIN 3 MG TABLET PO PRN (20:32)
[2021-03-13 05:47] LABS: Basophils % (A) 0 %; Eosinophils # (A) 0.1 k/uL (0-0.7); Eosinophils % (A) 1 %; HCT 41.9 % (34.0-46.0); HGB 14.9 gm/dL (11.4-16.0); Lymphocytes # (A) 0.8 k/uL (1.0-4.8); Lymphocytes % (A) 18 %; MCH 29.3 pg (25.0-35.0); MCHC 35.4 g/dL (31.0-37.0); MCV 82.6 fL (80.0-100.0); Mean Platelet Volume 7.6; Monocytes # (A) 0.5 k/uL (0-1.0); Monocytes % (A) 12 %; Neutrophils # (A) 2.8 k/uL (1.3-7.7); Neutrophils % (A) 66 %; Platelet Count 194 k/uL (150-450); RBC 5.08 m/uL (3.80-5.40); RDW 11.7 % (11.5-15.5); WBC 4.2 k/uL (3.8-10.6)
[2021-03-13 06:00] LABS: ALT 61 U/L (4-34); AST 41 U/L (14-36); African American GFR (CKD) >90 (>60 ml/min/1.73 sqM); Albumin 3.7 g/dL (3.5-5.0); Alkaline Phosphatase 56 U/L (38-126); Anion Gap 7 mmol/L; Blood Urea Nitrogen <2 mg/dL (7-17); Calcium 9.5 mg/dL (8.4-10.2); Carbon Dioxide 26 mmol/L (22-30); Chloride 99 mmol/L (98-107); Glucose 102 mg/dL (74-99); Magnesium 1.7 mg/dL (1.6-2.3); Non-African American GFR(CKD) >90 (>60 ml/min/1.73 sqM); Sodium 132 mmol/L (137-145); Total Bilirubin 0.3 mg/dL (0.2-1.3); Total Protein 6.1 g/dL (6.3-8.2)
[2021-03-13] MEDS: CHOLESTYRAMINE (WITH SUGAR) 4 GM PACKET PO SCH ×2 (08:45→17:06)
[2021-03-13] MEDS: amLODIPine 5 MG TAB PO SCH (08:47)
[2021-03-13] MEDS: PANTOPRAZOLE 40 MG/10 ML VIAL IVP SCH ×2 (08:47→20:32)
[2021-03-13] MEDS: HEPARIN SODIUM,PORCINE/PF 5,000 UNIT/0.5 ML SYRINGE SQ SCH ×2 (08:47→20:32)
[2021-03-13] MEDS: lisinopriL 10 MG TAB PO SCH (08:47)
[2021-03-13] MEDS: ESTRADIOL 0.1 MG/GM VAGINAL CREAM 42.5 GM TUBE VAGINAL SCH (08:52)
[2021-03-13] MEDS ORDERED: MD COMMUNICATION TO PHARMACY 1 EACH MISC PO SCH (09:00)
[2021-03-13] MEDS: NITAZOXANIDE 500 MG TABLET PO SCH ×2 (10:23→20:33)
[2021-03-13] MEDS: D5W WITH KCL 20 MEQ/L 1,000 ML IV SCH ×3 (10:23→20:16)
--- NOTE | 2021-03-13 15:23 | P.CONS ---
History of Present Illness - Reason for Consult Consult date: 03/13/21 Lymphopenia Requesting physician: Geeta Boggs - History of Present Illness Agata is a pleasant 51-year-old female past medical he significant for hypertension dystrophy reflux disease and a hospitalization for "lung infection" last year. She presented to the ER yesterday morning for evaluation of overall not feeling well. COmplaints included nausea heartburn and diarrhea, admitted to some diffuse abdominal cramping ,4-5 out of 10. She has been afebrile Labs normal white count with some lymphopenia. Patient did have stool studies and came back positive for Cryptosporidium. urine testing was negative C. difficile was negative [place] PCR was negative patient had did have a abdominal pelvis CT which was reported negative infectious was consulted for further management with a stool showing cryptosporidium. Review of Systems All systems: negative Constitutional: Reports as per HPI Past Medical History Past Medical History: GERD/Reflux, Hypertension, Thyroid Disorder History of Any Multi-Drug Resistant Organisms: None Reported Past Surgical History: Hysterectomy, Tubal Ligation Additional Past Surgical History / Comment(s): thyroid surgery Past Anesthesia/Blood Transfusion Reactions: Postoperative Nausea & Vomiting (PONV) Past Psychological History: No Psychological Hx Reported Smoking Status: Never smoker Past Alcohol Use History: Occasional Additional Past Alcohol Use History / Comment(s): STARTED AT AGE 18 QUIT AT AGE 20 SMOKED 1/2PPD Past Drug Use History: None Reported - Past Family History Mother Family Medical History: No Reported History Medications and Allergies Home Medications Medication Instructions Recorded Confirmed Type Ondansetron Odt [Zofran Odt] 4 mg PO Q8HR PRN #10 tab 03/08/21 03/10/21 Rx Benazepril [Lotensin] 10 mg PO DAILY 03/10/21 03/10/21 History Estradiol Cream [Estrace Cream 1 gm VAGINAL DAILY 03/10/21 03/10/21 History 0.01%] Omeprazole 20 mg PO BID 03/10/21 03/10/21 History Progesterone, Micronized 200 mg PO Q48H 03/10/21 03/10/21 History [Progesterone] amLODIPine [Norvasc] 5 mg PO DAILY 03/10/21 03/10/21 History Allergies Allergy/AdvReac Type Severity Reaction Status Date / Time erythromycin base Allergy Abdominal Verified 03/10/21 17:16 Pain Penicillins Allergy Rash/Hives Verified 03/10/21 17:16 sulfamethoxazole Allergy Rash/Hives Verified 03/10/21 17:16 [From Bactrim] trimethoprim [From Bactrim] Allergy Rash/Hives Verified 03/10/21 17:16 Physical Exam Vitals: Vital Signs Temp Pulse Resp BP Pulse Ox 03/13/21 14:05 97.7 F 89 16 103/69 97 03/13/21 08:20 97.5 F L 98 18 124/86 97 03/13/21 01:02 98.7 F 99 18 121/79 100 03/12/21 19:45 97.3 F L 104 H 16 114/79 97 Intake and Output 03/13/21 03/13/21 03/13/21 06:59 14:59 22:59 Intake Total 800 Balance 800 Intake: Intake, IV Titration 800 Amount D5w with KCl 20 Meq/l 1, 800 000 ml @ 100 mls/hr IV . Q10H DANE Rx#:[id number] Other: # Bowel Movements 3 - Constitutional General appearance: cooperative, no acute distress - EENT Eyes: EOMI, PERRLA ENT: NA/AT, normal oropharynx - Neck Neck: normal ROM - Respiratory Respiratory: bilateral: diminished - Cardiovascular Rhythm: regularly irregular - Gastrointestinal General gastrointestinal: normal bowel sounds, soft - Integumentary Integumentary: pale - Neurologic Neurologic: CNII-XII intact - Musculoskeletal Musculoskeletal: generalized weakness - Psychiatric Psychiatric: A&O x's 3, appropriate affect, intact judgment & insight Results CBC & Chem 7: 03/14/21 04:22 03/14/21 04:22 Labs: Abnormal Lab Results - Last 24 Hours (Table) 03/13/21 03/13/21 Range/Units 05:22 05:22 Lymphocytes # 0.8 L (1.0-4.8) k/uL Sodium 132 L (137-145) mmol/L BUN <2 L (7-17) mg/dL Glucose 102 H (74-99) mg/dL AST 41 H (14-36) U/L ALT 61 H (4-34) U/L Total Protein 6.1 L (6.3-8.2) g/dL Microbiology - Last 24 Hours (Table) 03/10/21 18:15 Stool Culture - Preliminary Stool 03/10/21 18:15 Blood Culture - Preliminary Blood No Growth after 48 hours Assessment and Plan (1) Lymphocytopenia Current Visit: Yes Status: Acute Code(s): D72.810 - LYMPHOCYTOPENIA SNOMED Code(s): 93616122 (2) Opportunistic infection Current Visit: Yes Status: Acute Code(s): B99.9 - UNSPECIFIED INFECTIOUS DISEASE SNOMED Code(s): 50999088 Plan: Further work-up ordered for underlying cause of decreased immune function Await full work-up. In the interim ID is following
[2021-03-13 16:38] LABS: Reticulocyte % 0.9 % (0.5-2.0)
[2021-03-13 16:51] LABS: Uric Acid 2.7 mg/dL (3.7-7.4)
[2021-03-13 16:55] LABS: Partial Thromboplastin Time 24.9 sec (22.0-30.0); Prothrombin Time 10.6 sec (9.0-12.0)
--- NOTE | 2021-03-13 18:03 | PN ---
PROGRESS NOTE DATE OF SERVICE: 03/13/2021 INTERVAL HISTORY: This 51-year-old woman who was admitted with acute gastroenteritis also had cryptosporidiosis. The patient is started on nitazoxanide 500 mg p.o. b.i.d. as a bioticide. No chest pain. No palpitations. No fever. PHYSICAL EXAM: GENERAL: Patient is alert and oriented times three. VITAL SIGNS: Pulse 98, blood pressure 124/82, respirations 18, temperature 97.2, pulse ox 97% on room air. HEENT: Conjunctivae normal. NECK: No jugular venous distention. No carotid bruits. RESPIRATORY: Breath sounds diminished at the bases. No rhonchi, no crackles. HEART: S1 and S2, muffled. ABDOMEN: Soft, no tenderness. No masses palpable. EXTREMITIES: No edema, no swelling. NERVOUS: No focal deficits. LABS: Lymphocytes are 0.8. Sodium 132. Other labs are noted. AST and ALT noted. BEE is negative. Cultures are negative so far. ASSESSMENT: 1. Acute gastroenteritis with continued diarrhea, possibly secondary to Cryptosporidium on nitazoxanide. 2. Severe dehydration present on admission secondary to continued diarrhea with diminished p.o. intake. 3. Acute metabolic acidosis secondary to diarrhea. 4. Hyponatremia. 5. Hypokalemia. 6. Lymphopenia. 7. Increased AST and ALT, acute hepatitis. 8. Thrombocytopenia. 9. Abnormal urine exam with 4+ ketones, present on admission. 10.History of gastroesophageal reflux disease. 11.Hypothyroidism. 12.History of hysterectomy. 13.History of tubal ligation. 14.History of thyroid surgery. 15.FULL CODE. RECOMMENDATIONS AND DISCUSSION: I recommend to continue current management and continue with symptomatic treatment. Continue with antiprotozoal medications. Otherwise symptomatic treatment, Questran. Repeat labs in the morning. Guarded prognosis because of multiple complex medical conditions. Further recommendations to follow. The patient does not have any obvious immune diseases with immunocompromise. [facility] to follow up with the jug of water, which was used by the patient. MMODL / IJN: [id number] /
--- NOTE | 2021-03-13 18:39 | PN ---
PROGRESS NOTE DATE OF SERVICE: 03/13/2021 REASON FOR FOLLOWUP: Acute bacterial gastroenteritis with Cryptosporidium. INTERVAL HISTORY: The patient is afebrile. The patient's abdominal pain has decreased in intensity. Still having diarrhea though frequency slightly decreased. No further blood in the stool. No chest pain, shortness of breath or cough. PHYSICAL EXAMINATION: Blood pressure 103/69, pulse 89, temp 97.7. She is 97% on room air. General description is a middle-aged female lying in bed in no distress. Respiratory system: Unlabored breathing, clear to auscultation anteriorly. Heart S1, S2. Regular rate and rhythm. Abdomen is soft, no tenderness. LAB DATA: Hemoglobin 14.1, white count 4.2, BUN of 2, creatinine 0.59. DIAGNOSTIC IMPRESSION AND PLAN: Patient with Cryptosporidium in this patient who presented to the hospital with acute gastroenteritis. The patient has been started on nitazoxanide 500 mg twice a day to continue along with supportive treatment and monitor clinical course closely. MMODL / IJN: [id number] /
[2021-03-13] MEDS: MELATONIN 3 MG TABLET PO PRN (20:32)
[2021-03-14] MEDS: D5W WITH KCL 20 MEQ/L 1,000 ML IV SCH (02:54)
[2021-03-14 04:37] LABS: Basophils % (A) 1 %; Eosinophils # (A) 0.1 k/uL (0-0.7); Eosinophils % (A) 1 %; HCT 39.5 % (34.0-46.0); HGB 14.4 gm/dL (11.4-16.0); Lymphocytes # (A) 0.7 k/uL (1.0-4.8); Lymphocytes % (A) 16 %; MCH 29.8 pg (25.0-35.0); MCHC 36.4 g/dL (31.0-37.0); MCV 81.8 fL (80.0-100.0); Mean Platelet Volume 7.6; Monocytes # (A) 0.5 k/uL (0-1.0); Monocytes % (A) 10 %; Neutrophils # (A) 3.3 k/uL (1.3-7.7); Neutrophils % (A) 69 %; Platelet Count 202 k/uL (150-450); RBC 4.83 m/uL (3.80-5.40); RDW 11.6 % (11.5-15.5); WBC 4.7 k/uL (3.8-10.6)
[2021-03-14 04:51] LABS: ALT 79 U/L (4-34); AST 58 U/L (14-36); African American GFR (CKD) >90 (>60 ml/min/1.73 sqM); Albumin 3.4 g/dL (3.5-5.0); Alkaline Phosphatase 49 U/L (38-126); Anion Gap 8 mmol/L; Blood Urea Nitrogen <2 mg/dL (7-17); Calcium 9.3 mg/dL (8.4-10.2); Carbon Dioxide 23 mmol/L (22-30); Chloride 97 mmol/L (98-107); Glucose 100 mg/dL (74-99); Non-African American GFR(CKD) >90 (>60 ml/min/1.73 sqM); Potassium 4.1 mmol/L (3.5-5.1); Sodium 128 mmol/L (137-145); Total Bilirubin 0.3 mg/dL (0.2-1.3); Total Protein 5.8 g/dL (6.3-8.2)
[2021-03-14] MEDS: lisinopriL 10 MG TAB PO SCH ×2 (08:54→20:22)
[2021-03-14] MEDS: amLODIPine 5 MG TAB PO SCH ×2 (08:54→20:22)
[2021-03-14] MEDS: NITAZOXANIDE 500 MG TABLET PO SCH ×2 (09:35→20:18)
[2021-03-14] MEDS: CHOLESTYRAMINE (WITH SUGAR) 4 GM PACKET PO SCH ×2 (09:36→17:59)
[2021-03-14] MEDS: HEPARIN SODIUM,PORCINE/PF 5,000 UNIT/0.5 ML SYRINGE SQ SCH ×2 (09:36→20:17)
[2021-03-14] MEDS: ESTRADIOL 0.1 MG/GM VAGINAL CREAM 42.5 GM TUBE VAGINAL SCH (09:38)
[2021-03-14] MEDS: 0.9% NACL WITH KCL 20 MEQ/L 1,000 ML IV SCH ×2 (09:56→20:14)
[2021-03-14] MEDS: PANTOPRAZOLE 40 MG/10 ML VIAL IVP SCH ×2 (09:58→20:18)
[2021-03-14 10:40] LABS: T Helper Cell (CD4) 473 cell/ul (443-1471); T Helper Cell (CD4) % 55 % (35-66); T Suppressor Cell (CD8) 127 cell/ul (190-832); T Suppressor Cell (CD8) % 15 % (9-37); T4/T8 Ratio (CD4:CD8) 3.7 (1.0-3.7)
[2021-03-14 13:12] LABS: Hepatitis A Antibody IgM Non-Reactive (Non-Reactive); Hepatitis B Core IgM Non-Reactive (Non-Reactive); Hepatitis B Surface Antigen Non-Reactive (Non-Reactive); Hepatitis C IgG Antibody Non-Reactive (Non-Reactive)
[2021-03-14 17:09] LABS: % Iron Saturation 17.65 (12.00-45.00)
[2021-03-14 17:17] LABS: Ferritin 174.1 ng/mL (10.0-291.0)
[2021-03-14 17:18] LABS: Folate, Serum 9.2 ng/mL
[2021-03-14 18:02] LABS: ALT 83 U/L (4-34); AST 50 U/L (14-36); African American GFR (CKD) >90 (>60 ml/min/1.73 sqM); Albumin 3.7 g/dL (3.5-5.0); Alkaline Phosphatase 57 U/L (38-126); Anion Gap 5 mmol/L; Blood Urea Nitrogen <2 mg/dL (7-17); Calcium 9.3 mg/dL (8.4-10.2); Carbon Dioxide 28 mmol/L (22-30); Chloride 100 mmol/L (98-107); Glucose 93 mg/dL (74-99); Non-African American GFR(CKD) >90 (>60 ml/min/1.73 sqM); Sodium 133 mmol/L (137-145); Total Bilirubin 0.4 mg/dL (0.2-1.3); Total Protein 6.2 g/dL (6.3-8.2)
--- NOTE | 2021-03-14 19:39 | PN ---
PROGRESS NOTE DATE OF SERVICE: 03/14/2021 REASON FOR FOLLOWUP: Acute cryptosporidiosis. INTERVAL HISTORY: Patient is afebrile. The patient is feeling slightly better today. She has only 2 episodes today. The patient denies having any chest pain, shortness of breath or cough. No abdominal pain or diarrhea. PHYSICAL EXAMINATION: Blood pressure 112/71 with a pulse of 89, temperature 98.3. She is 97% on room air. General description is a middle-aged female up in the bed in no distress. Respiratory system: Unlabored breathing. Clear to auscultation anteriorly. Heart: S1, S2. Regular rhythm. Abdomen: Soft. No tenderness. No guarding. No rigidity. LABS: Hemoglobin is 14.4, white count 4.7, BUN of 2, creatinine 0.49. DIAGNOSTIC IMPRESSION AND PLAN: Patient with cryptosporidiosis in this patient has been started on that will be continued along with supportive treatment and monitor clinical course closely. Questions and concerns were answered. MMODL / IJN: [id number] /
[2021-03-14] MEDS: MELATONIN 3 MG TABLET PO PRN (20:21)
--- NOTE | 2021-03-14 20:34 | PN ---
PROGRESS NOTE DATE OF SERVICE: 03/14/2021 This 51-year-old woman admitted with acute cryptosporidiosis, also had mild lymphopenia, which is rather chronic in nature. It is unsure whether the patient has any significant immunocompromised condition at this time. Dr. Dixon and Dr. Maria are following the patient closely. No chest pain. No palpitations. No fever and the diarrhea is slightly better today. IV fluids have been changed. PHYSICAL EXAMINATION: Alert, attentive. Pulse 89, blood pressure 120/70, respirations 16, temperature 98.6, pulse ox 97 percent room air. HEENT: Conjunctivae normal. HEART: S1, S2 muffled. RESPIRATORY SYSTEM: Breath sounds diminished at the bases, no rhonchi. ABDOMEN: Soft. NERVOUS SYSTEM: No focal deficit. LABS: Lymphocytes are 0.7, otherwise sodium 128, potassium 4.1. ASSESSMENT: 1. Acute gastroenteritis with continued diarrhea, possibly secondary to Cryptosporidium, on nitazoxanide. 2. Severe dehydration present on admission secondary to continued diarrhea with diminished p.o. intake. 3. Acute metabolic acidosis secondary to diarrhea present on admission. 4. Hyponatremia. 5. Hypokalemia. 6. Lymphopenia. 7. Elevated AST, ALT, acute hepatitis. 8. Thrombocytopenia. 9. Abnormal urine with 4+ ketones, present on admission. 10.History of GERD. 11.History of hypothyroidism. 12.History of hysterectomy. 13.History of tubal ligation. 14.History of thyroid surgery. 15.FULL CODE. RECOMMENDATIONS AND DISCUSSION: To continue current medications, symptomatic treatment. Otherwise at this time I recommend continue with medication. Hepatitis panel is negative. Repeat labs. Tend IV fluids. Closely follow with Infectious Disease. Guarded prognosis. Further recommendations to follow. Will advance the diet. Continue with the Questran. MMODL / IJN: [id number] / MTDD
--- NOTE | 2021-03-14 20:42 | P.PN ---
Subjective Progress Note Date: 03/14/21 Principal diagnosis: Cryptosporin Stool T Supporessors cells are low at 127, Awaiting immunoglobulin. HIV non reactive. Autoimmune work-up pending. Immunoglobulins pending. Discussed with patient and , continue supportive care. Objective - Vital Signs Vital signs: Vital Signs Temp 98.0 F 03/14/21 08:00 Pulse 85 03/14/21 08:00 Resp 16 03/14/21 08:00 BP 107/72 03/14/21 08:00 Pulse Ox 98 03/14/21 08:00 Intake & Output 03/13/21 03/14/21 03/14/21 18:59 06:59 18:59 Other: Voiding Method Toilet # Voids 2 3 # Bowel Movements 1 1 0 - Exam - Constitutional General appearance: cooperative, no acute distress - EENT Eyes: EOMI, PERRLA ENT: NA/AT, normal oropharynx - Neck Neck: normal ROM - Respiratory Respiratory: bilateral: diminished - Cardiovascular Rhythm: regularly irregular - Gastrointestinal General gastrointestinal: normal bowel sounds, soft - Integumentary Integumentary: pale - Neurologic Neurologic: CNII-XII intact - Musculoskeletal Musculoskeletal: generalized weakness - Psychiatric Psychiatric: A&O x's 3, appropriate affect, intact judgment & insight - Labs CBC & Chem 7: 03/14/21 04:22 03/14/21 17:30 Labs: Abnormal Lab Results - Last 24 Hours (Table) 03/13/21 03/13/21 03/13/21 Range/Units 16:23 16:23 16:23 Lymphocytes # (1.0-4.8) k/uL Sodium (137-145) mmol/L Chloride (98-107) mmol/L BUN (7-17) mg/dL Creatinine (0.52-1.04) mg/dL Glucose (74-99) mg/dL Uric Acid 2.7 L (3.7-7.4) mg/dL AST (14-36) U/L ALT (4-34) U/L Total Protein (6.3-8.2) g/dL Albumin (3.5-5.0) g/dL Thyroglobulin 0.45 L (1.60-59.90) ng/mL T-Suppressor Cells 127 L (190-832) cell/ul 03/14/21 03/14/21 Range/Units 04:22 04:22 Lymphocytes # 0.7 L (1.0-4.8) k/uL Sodium 128 L (137-145) mmol/L Chloride 97 L (98-107) mmol/L BUN <2 L (7-17) mg/dL Creatinine 0.49 L (0.52-1.04) mg/dL Glucose 100 H (74-99) mg/dL Uric Acid (3.7-7.4) mg/dL AST 58 H (14-36) U/L ALT 79 H (4-34) U/L Total Protein 5.8 L (6.3-8.2) g/dL Albumin 3.4 L (3.5-5.0) g/dL Thyroglobulin (1.60-59.90) ng/mL T-Suppressor Cells (190-832) cell/ul Microbiology - Last 24 Hours (Table) 03/10/21 18:15 Stool Culture - Final Stool 03/10/21 18:15 Blood Culture - Preliminary Blood No Growth after 72 hours Assessment and Plan (1) Lymphocytopenia Current Visit: Yes Status: Acute Code(s): D72.810 - LYMPHOCYTOPENIA SNOMED Code(s): 93580451 (2) Opportunistic infection Current Visit: Yes Status: Acute Code(s): B99.9 - UNSPECIFIED INFECTIOUS DISEASE SNOMED Code(s): 71591064 Plan: Further work-up ordered for underlying cause of decreased immune function Await full work-up. In the interim ID is following So far work-up is negative. Awaiting immunoglobulins and completion of autoimmune testing. HIV and CD4CD8 ratio wnl Physician Attest: I have completed the full history and physical and agree with above dictation, dictated as a ascribe
[2021-03-14 21:38] LABS: Protein, Total 6.5 g/dL (6.2-8.2)
[2021-03-15] MEDS: 0.9% NACL WITH KCL 20 MEQ/L 1,000 ML IV SCH ×2 (05:40→14:51)
[2021-03-15 07:11] LABS: Basophils % (A) 1 %; Eosinophils # (A) 0.1 k/uL (0-0.7); Eosinophils % (A) 2 %; HCT 36.8 % (34.0-46.0); HGB 13.5 gm/dL (11.4-16.0); Lymphocytes # (A) 0.5 k/uL (1.0-4.8); Lymphocytes % (A) 17 %; MCH 30.3 pg (25.0-35.0); MCHC 36.6 g/dL (31.0-37.0); MCV 82.7 fL (80.0-100.0); Mean Platelet Volume 7.5; Monocytes # (A) 0.4 k/uL (0-1.0); Monocytes % (A) 13 %; Neutrophils % (A) 63 %; Platelet Count 183 k/uL (150-450); RBC 4.45 m/uL (3.80-5.40); RDW 11.6 % (11.5-15.5); WBC 3.2 k/uL (3.8-10.6)
[2021-03-15] MEDS: ESTRADIOL 0.1 MG/GM VAGINAL CREAM 42.5 GM TUBE VAGINAL SCH (08:23)
[2021-03-15] MEDS: HEPARIN SODIUM,PORCINE/PF 5,000 UNIT/0.5 ML SYRINGE SQ SCH ×2 (08:23→20:50)
[2021-03-15] MEDS: CHOLESTYRAMINE (WITH SUGAR) 4 GM PACKET PO SCH (08:24)
[2021-03-15] MEDS: PANTOPRAZOLE 40 MG/10 ML VIAL IVP SCH ×2 (08:24→22:39)
[2021-03-15] MEDS: NITAZOXANIDE 500 MG TABLET PO SCH ×2 (09:19→20:53)
[2021-03-15 10:55] LABS: Methylmalonic Acid <0.10 umol/L (<0.40)
[2021-03-15] MEDS ORDERED: CHOLESTYRAMINE (WITH SUGAR) 4 GM PACKET PO SCH (18:00)
--- NOTE | 2021-03-15 18:09 | PN ---
PROGRESS NOTE DATE OF SERVICE: 03/15/2021 REASON FOR FOLLOWUP: Acute Cryptosporidium. INTERVAL HISTORY: The patient is afebrile. The patient seems to have worsening of her diarrhea with multiple loose stools last night and this morning. Denies any blood or mucus in the stool. No abdominal pain. No chest pain, shortness of breath or cough. She has been able to tolerate her diet. PHYSICAL EXAMINATION: Her blood pressure is 130/93 with a pulse of 99, temperature 97.7. She is 97% on room air. GENERAL DESCRIPTION: The patient is a middle-aged female lying in bed in no distress. RESPIRATORY SYSTEM: Unlabored breathing, clear to auscultation anteriorly. HEART: S1, S2. Regular rate. ABDOMEN: Soft, no tenderness. LABS: Hemoglobin is 13.4, hematocrit 3.2. DIAGNOSTIC IMPRESSION AND PLAN: Patient admitted to the hospital with acute diarrhea. Stool positive for Cryptosporidium. Has been ( ) middle of the night. Did have ( ) yesterday however has been worsening today. Repeat stool studies have been ordered and will be followed. To continue with nitazoxanide and Questran. Timing will be adjusted ( ) does not coincide with antiparasitic. Medication advised to increase the probiotic p.o. intake, continue supportive care. MMODL / IJN: [id number] /
--- NOTE | 2021-03-15 18:18 | PN ---
PROGRESS NOTE DATE OF SERVICE: 03/15/2021 INTERVAL HISTORY: This is a 51-year-old woman who was admitted with acute gastritis had cryptosporidiosis. The patient was started on nitazoxanide. The patient also had minimal lymphopenia and mild leukopenia today. No chest pain. No palpitations. No fever. The patient had continued diarrhea. Small respite was noted. PHYSICAL EXAMINATION: GENERAL: Patient is alert and oriented times three. VITAL SIGNS: Pulse 99, blood pressure 130/90, respirations 17, temperature 97.7, pulse ox 97% on room air. HEENT: Conjunctivae normal. Oral mucosa moist. NECK: No jugular venous distention. No carotid bruits. No lymph node enlargement. RESPIRATORY: Breath sounds diminished at the bases. A few scattered rhonchi. HEART: S1 and S2, muffled. ABDOMEN: Soft, no tenderness. No masses palpable. EXTREMITIES: No edema, no swelling. NERVOUS: No focal deficits. LABORATORY DATA: Lymphocytes 0.5. WBC 3.2, sodium 133. Other labs are noted. ASSESSMENT: 1. Acute gastroenteritis with continued diarrhea possibly secondary to Cryptosporidium on 2 nitazoxanide. 2. Severe dehydration present on admission secondary to continued diarrhea with diminished p.o. intake at the time of admission. 3. Acute metabolic acidosis secondary to diarrhea present on admission. 4. Hyponatremia. 5. Hypokalemia. 6. Lymphopenia. 7. Elevated AST ALT, acute hepatitis. 8. Thrombocytopenia. 9. Abnormal urine with 4+ ketones present on admission. 10.History of gastroesophageal reflux disease. 11.Hypothyroidism. 12.Hysterectomy. 13.History of tubal ligation. 14.History of thyroid surgery. 15.FULL CODE. RECOMMENDATION AND DISCUSSION: Recommend to continue current management and continue symptomatic treatment. Will repeat the stool exams today including culture. Closely follow with Dr. Dixon. Continue with nitazoxanide. Repeat labs. Continue with IV fluids. Guarded prognosis because of multiple complex medical issues. Further recommendations to follow. MMODL / IJN: [id number] /
[2021-03-15] MEDS: amLODIPine 5 MG TAB PO SCH (20:53)
[2021-03-15] MEDS: lisinopriL 10 MG TAB PO SCH (20:53)
[2021-03-15] MEDS: MELATONIN 3 MG TABLET PO PRN (20:53)
[2021-03-16] MEDS: 0.9% NACL WITH KCL 20 MEQ/L 1,000 ML IV SCH ×3 (01:53→19:30)
[2021-03-16 07:21] LABS: African American GFR (CKD) >90 (>60 ml/min/1.73 sqM); Anion Gap 4 mmol/L; Blood Urea Nitrogen <2 mg/dL (7-17); Calcium 8.8 mg/dL (8.4-10.2); Carbon Dioxide 25 mmol/L (22-30); Chloride 105 mmol/L (98-107); Glucose 93 mg/dL (74-99); Non-African American GFR(CKD) >90 (>60 ml/min/1.73 sqM); Potassium 4.2 mmol/L (3.5-5.1); Sodium 134 mmol/L (137-145)
[2021-03-16 07:26] LABS: HCT 35.2 % (34.0-46.0); HGB 12.3 gm/dL (11.4-16.0); MCH 29.2 pg (25.0-35.0); MCHC 34.8 g/dL (31.0-37.0); MCV 83.8 fL (80.0-100.0); Platelet Count 203 k/uL (150-450); RDW 12.2 % (11.5-15.5); WBC 3.2 k/uL (3.8-10.6)
[2021-03-16] MEDS: ESTRADIOL 0.1 MG/GM VAGINAL CREAM 42.5 GM TUBE VAGINAL SCH (08:19)
[2021-03-16] MEDS: PANTOPRAZOLE 40 MG/10 ML VIAL IVP SCH ×2 (08:53→21:34)
[2021-03-16] MEDS: HEPARIN SODIUM,PORCINE/PF 5,000 UNIT/0.5 ML SYRINGE SQ SCH ×2 (08:53→21:33)
[2021-03-16 09:37] LABS: Band Neutrophils % 1 %; Eosinophils # (M) 0.06 k/uL (0-0.7); Monocytes # (M) 0.45 k/uL (0-1.0); Neutrophils % (M) 55 %; Nucleated Red Blood Cells 0 /100 WBC (0-0); Total Cells Counted 100
[2021-03-16 09:38] LABS: Anisocytosis (M) Present; Poikilocytosis (M) Present
[2021-03-16] MEDS ORDERED: CHOLESTYRAMINE (WITH SUGAR) 4 GM PACKET PO SCH (11:30)
[2021-03-16 12:54] LABS: Free Kappa Lt Chain Qnt, Serum 1.29 mg/dL (0.33-1.94); Immunoglobulin M 58.4 mg/dL (40.0-280.0)
--- NOTE | 2021-03-16 15:07 | PN ---
PROGRESS NOTE DATE OF SERVICE: 03/16/2021 REASON FOR FOLLOWUP: Acute bacterial enteritis. INTERVAL HISTORY: The patient is afebrile. The patient is breathing comfortably. No abdominal pain. She is still having loose stools about 6-7 episodes since midnight. No blood or mucous in the stool. No nausea, no vomiting. No chest pain, shortness of breath or cough. PHYSICAL EXAMINATION: Blood pressure 110/73 with a pulse of 92, temperature is 97.3, she is 98% on room air. General description is a middle-aged female lying in bed in no distress. Respiratory system: Unlabored breathing, clear to auscultation anteriorly. Heart S1, S2. Regular rate and rhythm. Abdomen is soft, no tenderness. LABS: Hemoglobin is 12.3, white count 3.2, BUN of 2, creatinine 0.61. Repeat stool studies currently pending. DIAGNOSTIC IMPRESSION AND PLAN: Patient admitted to the hospital with intractable diarrhea has been diagnosed with cryptosporidiosis. She has some improvement Nitazoxanide, however, not complete resolution. Given another 3-day course of nitazoxanide. Questran should be spaced out at least 3 hours from nitazoxanide dose to prevent any effect on the this medication. Advised to increase the probiotic and we will re-evaluate the patient tomorrow. MMODL / IJN: [id number] /
--- NOTE | 2021-03-16 17:53 | PN ---
PROGRESS NOTE DATE OF SERVICE: 03/16/2021 This 51-year-old woman was admitted with Cryptosporidiosis, continued diarrhea. The patient finished a course of nitazoxanide. Dr. Dixon is following the patient closely. Gastroenterology also been consulted for further evaluation. The patient has been closely monitored. No fever. No cough. The patient has got minimal lymphopenia and minimal leukopenia of undetermined significance. The repeat Cryptosporidium is again came back as positive. Rotavirus antigen and Giardia was negative. PHYSICAL EXAMINATION: Alert and oriented x3. Pulse 88, blood pressure 120/70, respirations 16, temperature 98 degrees, pulse ox 100 percent on room air. HEENT: Conjunctivae normal. Oral mucosa moist. NECK: No jugular venous distention. No lymph node enlargement. CARDIOVASCULAR: S1, S2, muffled. No S3, no S4, RESPIRATORY: Diminished breath sounds at the bases. A few scattered rhonchi. ABDOMEN: Soft, nontender. LEGS: No edema, no swelling. NERVOUS SYSTEM: Higher functions mentioned earlier. Moves all four limbs. No focal motor or sensory deficits. LYMPHATICS: No lymph node in neck or axilla. SKIN: No rash. JOINTS: No active deforming arthropathy. LAB STUDIES: WBC ( ), hemoglobin 12.3, sodium 134. ASSESSMENT: 1. Acute gastroenteritis with continued diarrhea possibly secondary to Cryptosporidium, status post course of nitazoxanide. 2. Persistent Cryptosporidium on the repeat stool exam. 3. Severe dehydration present on admission secondary to continued diarrhea with diminished p.o. intake at the time of admission. 4. Acute metabolic acidosis secondary to diarrhea, present on admission. 5. Hyponatremia. 6. Hypokalemia. 7. Lymphopenia. 8. Elevated AST, ALT, acute hepatitis possibly, mild. 9. Leukopenia, mild. 10.Abnormal urine with 4+ ketones, present on admission. 11.History of GERD. 12.Hypothyroidism history. 13.History of hysterectomy. 14.History of tubal ligation. 15.History of thyroid surgery. 16.FULL CODE. RECOMMENDATIONS AND DISCUSSION: I recommend to continue current management. closely follow with Dr. Dixon. Discussed with Dr. Dixon, where he will evaluate the patient further. Otherwise, prognosis guarded because of multiple complex medical problems. IV fluids. Repeat labs. Further recommendations to follow. MMODL / IJN: [id number] /
[2021-03-16] MEDS: CHOLESTYRAMINE (WITH SUGAR) 4 GM PACKET PO SCH (18:28)
[2021-03-16] MEDS: NITAZOXANIDE 500 MG TABLET PO SCH (21:34)
[2021-03-16] MEDS: MELATONIN 3 MG TABLET PO PRN (21:41)
[2021-03-17] MEDS: CHOLESTYRAMINE (WITH SUGAR) 4 GM PACKET PO SCH ×4 (00:26→17:38)
[2021-03-17] MEDS: lisinopriL 10 MG TAB PO SCH (00:30)
[2021-03-17] MEDS: amLODIPine 5 MG TAB PO SCH (00:30)
[2021-03-17 06:54] LABS: African American GFR (CKD) >90 (>60 ml/min/1.73 sqM); Anion Gap 2 mmol/L; Blood Urea Nitrogen <2 mg/dL (7-17); Carbon Dioxide 27 mmol/L (22-30); Chloride 107 mmol/L (98-107); Glucose 94 mg/dL (74-99); Non-African American GFR(CKD) >90 (>60 ml/min/1.73 sqM); Sodium 136 mmol/L (137-145)
[2021-03-17 06:57] LABS: HCT 35.4 % (34.0-46.0); HGB 12.1 gm/dL (11.4-16.0); MCH 28.8 pg (25.0-35.0); MCHC 34.1 g/dL (31.0-37.0); MCV 84.6 fL (80.0-100.0); Mean Platelet Volume 6.7; Platelet Count 202 k/uL (150-450); RBC 4.19 m/uL (3.80-5.40); RDW 12.4 % (11.5-15.5); WBC 3.1 k/uL (3.8-10.6)
--- NOTE | 2021-03-17 07:33 | P.CONS ---
History of Present Illness - Reason for Consult Consult date: 03/16/21 Diarrhea Requesting physician: Geeta Boggs - Chief Complaint Diarrhea - History of Present Illness 51-year-old female for hypertension, reflux who presented to the hospital due to complaints of diarrhea. The patient had been having bowel movements up to every hour occurring since 03/06/21. She reports multiple loose bowel movements with associated urgency. No blood per rectum reported. She has had a colonoscopy approximately 7-8 years ago and reports at baseline she suffers from constipation. She denied any triggers, unusual foods or antibiotics prior to developing the symptoms. Patient had stool testing which was positive for cryptosporidium. She's been receiving supportive care with cholestyramine twice daily as well as receiving 3 doses of Nitazoamide for treatment of the cryptosporidium. Overall bowel movements have improved however they are still not back to baseline and she reports to 6 looser bowel movements today. Review of Systems REVIEW OF SYSTEMS: CONSTITUTIONAL: Denies any fevers, chills, weight change or fatigue. CARDIOVASCULAR: Denies any chest pain, palpitations high or low blood pressures RESPIRATORY: Denies any shortness of breath, hemoptysis or cough. GENITOURINARY: No dysuria or hematuria. MUSCULOSKELETAL: No weakness reported. SKIN: Denies any new rashes or lesions, jaundice or pallor. PSYCHIATRIC: Denies any depression or anxiety. NEUROLOGY: Denies headache, denies any new focal deficits. EARS/NOSE/THROAT: No recent hearing change, congestion, nasal discharge or sore throat. EYES: No pain in eyes, discharge or change in vision. GASTROINTESTINAL: As per HPI. Past Medical History Past Medical History: GERD/Reflux, Hypertension, Thyroid Disorder History of Any Multi-Drug Resistant Organisms: None Reported Past Surgical History: Hysterectomy, Tubal Ligation Additional Past Surgical History / Comment(s): thyroid surgery Past Anesthesia/Blood Transfusion Reactions: Postoperative Nausea & Vomiting (PONV) Past Psychological History: No Psychological Hx Reported Smoking Status: Never smoker Past Alcohol Use History: Occasional Additional Past Alcohol Use History / Comment(s): STARTED AT AGE 18 QUIT AT AGE 20 SMOKED 1/2PPD Past Drug Use History: None Reported - Past Family History Mother Family Medical History: No Reported History Medications and Allergies Home Medications Medication Instructions Recorded Confirmed Type Ondansetron Odt [Zofran Odt] 4 mg PO Q8HR PRN #10 tab 03/08/21 03/10/21 Rx Benazepril [Lotensin] 10 mg PO DAILY 03/10/21 03/10/21 History Estradiol Cream [Estrace Cream 1 gm VAGINAL DAILY 03/10/21 03/10/21 History 0.01%] Omeprazole 20 mg PO BID 03/10/21 03/10/21 History Progesterone, Micronized 200 mg PO Q48H 03/10/21 03/10/21 History [Progesterone] amLODIPine [Norvasc] 5 mg PO DAILY 03/10/21 03/10/21 History Allergies Allergy/AdvReac Type Severity Reaction Status Date / Time erythromycin base Allergy Abdominal Verified 03/10/21 17:16 Pain Penicillins Allergy Rash/Hives Verified 03/10/21 17:16 sulfamethoxazole Allergy Rash/Hives Verified 03/10/21 17:16 [From Bactrim] trimethoprim [From Bactrim] Allergy Rash/Hives Verified 03/10/21 17:16 Physical Exam Vitals: Vital Signs Temp Pulse Resp BP Pulse Ox 03/17/21 06:00 81 18 103/62 96 03/17/21 00:20 92 18 133/80 97 03/16/21 19:37 97.5 F L 87 18 128/81 100 03/16/21 14:00 98.0 F 88 16 126/79 100 03/16/21 08:00 97.6 F 92 16 110/73 98 Intake and Output 03/16/21 03/17/21 03/17/21 22:59 06:59 14:59 Output Total 640 Balance -640 Output: Stool 640 Other: Voiding Method Toilet # Voids 3 # Bowel Movements 1 On physical examination, patient appears comfortable in no apparent distress. HEAD: Normocephalic, atraumatic. EYES: No scleral icterus. No conjunctival injection. MOUTH: No lesions, tongue midline. NECK: Trachea midline, no gross abnormalities. CHEST: Clear to auscultation with no wheezing or rhonchi appreciated. HEART: Regular rate and rhythm. ABDOMEN: Soft, nontender to palpation. Bowel sounds are positive. No organomegaly. No guarding or rigidity. EXTREMITIES: No pedal edema. SKIN: No rashes, no jaundice. NEUROLOGIC: Alert and oriented x3. No focal deficits. Results CBC & Chem 7: 03/17/21 06:11 03/17/21 06:11 Labs: Abnormal Lab Results - Last 24 Hours (Table) 03/15/21 03/15/21 03/16/21 Range/Units 15:18 15:18 06:47 WBC 3.2 L (3.8-10.6) k/uL Lymphocytes # (Manual) 0.90 L (1.0-4.8) k/uL Sodium (137-145) mmol/L BUN (7-17) mg/dL Stool Lactoferrin POSITIVE A (NEGATIVE) Stl Cryptosporidium Ag Positive A (Negative) 03/17/21 03/17/21 Range/Units 06:11 06:11 WBC 3.1 L (3.8-10.6) k/uL Lymphocytes # (Manual) (1.0-4.8) k/uL Sodium 136 L (137-145) mmol/L BUN <2 L (7-17) mg/dL Stool Lactoferrin (NEGATIVE) Stl Cryptosporidium Ag (Negative) Microbiology - Last 24 Hours (Table) 03/10/21 18:15 Blood Culture - Final Blood No Growth after [address] scan - abdomen: report reviewed (No acute abdominal or pelvic process on computed tomography scan of the abdomen.) Assessment and Plan (1) Diarrhea due to cryptosporidium Narrative/Plan: 51-year-old female presenting for intractable diarrhea found to have cryptosporidium infection. She is status post 3 days of antibiotic therapy. She is also taking cholestyramine twice daily. Computed tomography scan of the abdomen negative for any acute intra-abdominal pathology. Last colonoscopy 17 years ago. Current Visit: Yes Status: Acute Code(s): A07.2 - CRYPTOSPORIDIOSIS SNOMED Code(s): 40075043 Plan: Supportive care Okay for diet as tolerated, suggest low lactose and low fiber in the acute setting Repeat course of antibiotic therapy as per infectious disease recommendations Will increase cholestyramine to 3 times a day Okay for probiotic as ordered Thank you for allowing us to participate in the care of the patient
[2021-03-17] MEDS: ESTRADIOL 0.1 MG/GM VAGINAL CREAM 42.5 GM TUBE VAGINAL SCH (08:03)
[2021-03-17] MEDS: HEPARIN SODIUM,PORCINE/PF 5,000 UNIT/0.5 ML SYRINGE SQ SCH ×2 (08:35→19:56)
[2021-03-17] MEDS: PANTOPRAZOLE 40 MG/10 ML VIAL IVP SCH (08:36)
[2021-03-17] MEDS: NITAZOXANIDE 500 MG TABLET PO SCH ×2 (08:37→21:32)
[2021-03-17 09:34] LABS: Eosinophils # (M) 0.03 k/uL (0-0.7); Lymphocytes # (M) 0.68 k/uL (1.0-4.8); Monocytes # (M) 0.47 k/uL (0-1.0); Neutrophils # (M) 1.92 k/uL (1.3-7.7); Neutrophils % (M) 62 %; Nucleated Red Blood Cells 0 /100 WBC (0-0); Total Cells Counted 100
--- NOTE | 2021-03-17 09:34 | P.PN ---
Subjective Progress Note Date: 03/17/21 Principal diagnosis: Diarrhea Patient is seen and examined sitting up in bed. Denies any nausea or vomiting, fevers or chills. Denies any abdominal pain or cramping. States she had attended 12 episodes of loose stools yesterday, denies any blood or mucus in her stools. States she has not had a bowel movement since yesterday evening at 10 PM. Objective - Vital Signs Vital signs: Vital Signs Temp 97.7 F 03/17/21 08:25 Pulse 85 03/17/21 08:25 Resp 16 03/17/21 08:25 BP 121/76 03/17/21 08:25 Pulse Ox 97 03/17/21 08:25 Intake & Output 03/16/21 03/17/21 03/17/21 18:59 06:59 18:59 Output Total 710 210 200 Balance -710 -210 -200 Weight 69.7 kg Output: Stool 585 210 200 Other 125 Other: Voiding Method Toilet Toilet Toilet # Voids 1 3 # Bowel Movements 1 - Exam General appearance: The patient is alert, oriented, appears in no acute distress. HET: Head is normocephalic and atraumatic. Conjunctiva pink. Sclera anicteric. Neck: Supple without lymphadenopathy. Abdomen: Soft, nontender, nondistended with bowel sounds. No guarding or rigidity. Extremities: Normal skin color and turgor. No pedal edema Skin: No rashes, no jaundice Neurological: No focal deficits. Alert and oriented 3. - Labs CBC & Chem 7: 03/17/21 06:11 03/17/21 06:11 Labs: Abnormal Lab Results - Last 24 Hours (Table) 03/15/21 03/15/21 03/16/21 Range/Units 15:18 15:18 06:47 WBC (3.8-10.6) k/uL Lymphocytes # (Manual) 0.90 L (1.0-4.8) k/uL Sodium (137-145) mmol/L BUN (7-17) mg/dL Stool Lactoferrin POSITIVE A (NEGATIVE) Stl Cryptosporidium Ag Positive A (Negative) 03/17/21 03/17/21 Range/Units 06:11 06:11 WBC 3.1 L (3.8-10.6) k/uL Lymphocytes # (Manual) (1.0-4.8) k/uL Sodium 136 L (137-145) mmol/L BUN <2 L (7-17) mg/dL Stool Lactoferrin (NEGATIVE) Stl Cryptosporidium Ag (Negative) Microbiology - Last 24 Hours (Table) 03/10/21 18:15 Blood Culture - Final Blood No Growth after 144 hours Assessment and Plan (1) Diarrhea due to cryptosporidium Narrative/Plan: 51-year-old female presenting for intractable diarrhea found to have cryptosporidium infection. She is status post 3 days of antibiotic therapy. She is also taking cholestyramine twice daily. Computed tomography scan of the abdomen negative for any acute intra-abdominal pathology. Last colonoscopy 7 years ago. Current Visit: Yes Status: Acute Code(s): A07.2 - CRYPTOSPORIDIOSIS SNOMED Code(s): 11039430 Plan: Supportive care Okay for diet as tolerated, suggest low lactose and low fiber in the acute setting Repeat course of antibiotic therapy as per infectious disease recommendations Recommend titrating down on cholestyramine Okay for probiotic as orderedas symptoms improve Thank you for allowing us to participate in the care of the patient Dr. Wheeler I agree with the dictator's note, documented as a scribe by Cate Vidales.
[2021-03-17] MEDS: PANTOPRAZOLE 40 MG TABLET PO SCH ×2 (12:17→21:33)
[2021-03-17 12:44] LABS: Albumin 3.84 g/dL (3.80-4.90); Gamma Globulin 0.78 g/dL (0.70-1.50)
--- NOTE | 2021-03-17 13:01 | PN ---
PROGRESS NOTE DATE OF SERVICE: 03/17/2021 REASON FOR FOLLOWUP: INTERVAL HISTORY: Patient is afebrile. The patient is feeling better. The patient's diarrhea has improved with one episode since midnight. Denies any current abdominal pain. No blood in the stool. No chest pain, shortness of breath or cough. PHYSICAL EXAMINATION: Blood pressure 121/76, pulse 85, temperature 97.7. She is 97% on room air. General description is a middle-aged female lying in bed in no distress. Respiratory system: Unlabored breathing. Clear to auscultation anteriorly. Heart S1, S2. Regular rate and rhythm. Abdomen: Soft, no tenderness. LABS: Hemoglobin 12.1, white count 3.9, BUN 12, creatinine 0.52. Repeat stool is pending at this time. The patient with acute to continue along with the Questran. Slowly increase her diet and therapy, hopefully will be able to go home tomorrow. MMODL / IJN: [id number] /
[2021-03-17 14:20] VITALS: BMI 25.5
[2021-03-17] MEDS: 0.9% NACL WITH KCL 20 MEQ/L 1,000 ML IV SCH (19:13)
[2021-03-17] MEDS ORDERED: amLODIPine 5 MG TAB PO SCH (21:00)
[2021-03-17] MEDS ORDERED: lisinopriL 10 MG TAB PO SCH (21:00)
[2021-03-17] MEDS: MELATONIN 3 MG TABLET PO PRN (21:39)
[2021-03-18] MEDS: CHOLESTYRAMINE (WITH SUGAR) 4 GM PACKET PO SCH ×3 (00:19→12:00)
--- NOTE | 2021-03-18 01:28 | P.PN ---
Subjective Progress Note Date: 03/17/21 This is a 51-year-old female who was recently admitted with cryptosporidiosis and continued diarrhea and is being closely monitored. Patient did complete course of Nitazoxanide infectious disease is following closely. Patient repeating course of Nitazoxanide as repeat stool culture continue to show Cr yptosporidium awaiting for another stool sample. Patient is on anti-diarrheals in the form of questran and close intake and output as patient continues to have multiple loose stools. Patient states that the stools have slightly become more formed. Patient's diet is being slowly advanced and tolerating thus far. GI also following. No reports of chest pain, shortness of breath, or palpitations. Patient is afebrile. Review of systems: Constitutional: No reports of fatigue, fever, or chills Cardiovascular: No reports of chest pain or palpitations Respiratory: No reports of shortness of breath or cough GI: No reports of nausea, vomiting, reports continued diarrhea although lessened in severity and slightly more formed. : No reports of dysuria or retention Neurovascular: No reports of weakness or numbness All medications have been reviewed Objective - Vital Signs Vital signs: Vital Signs Temp 97.7 F 03/17/21 08:25 Pulse 85 03/17/21 08:25 Resp 16 03/17/21 08:25 BP 121/76 03/17/21 08:25 Pulse Ox 97 03/17/21 08:25 Intake & Output 03/16/21 03/17/21 03/17/21 18:59 06:59 18:59 Output Total 710 210 450 Balance -710 -210 -450 Weight 69.7 kg Output: Stool 585 210 450 Other 125 Other: Voiding Method Toilet Toilet Toilet # Voids 1 3 # Bowel Movements 1 1 - Exam Gen: This is a 51-year-old female sitting up in bed, awake, alert and oriented 3, well-developed, well-nourished. Temp is 97.7F, pulse is 85, respirations are 16, blood pressure is 121/76, oxygen saturation is 97% on room air. HEENT: Head is atraumatic, normocephalic. Pupils equal, round. Sclerae is anicteric. NECK: Supple. No JVD. No lymphadenopathy. No thyromegaly. LUNGS: diminished breath sounds bilaterally with no wheezes or rhonchi. No intercostal retractions. HEART: S1, S2 muffled ABDOMEN: Soft. Bowel sounds are present. No masses. No tenderness. EXTREMITIES: No pedal edema. No calf tenderness. NEUROLOGICAL: Patient is awake, alert and oriented x3. Cranial nerves 2 through 12 are grossly intact. - Labs CBC & Chem 7: 03/17/21 06:11 03/17/21 06:11 Labs: Abnormal Lab Results - Last 24 Hours (Table) 03/15/21 03/15/21 03/17/21 Range/Units 15:18 15:18 06:11 WBC 3.1 L (3.8-10.6) k/uL Lymphocytes # (Manual) 0.68 L (1.0-4.8) k/uL Sodium (137-145) mmol/L BUN (7-17) mg/dL Stool Lactoferrin POSITIVE A (NEGATIVE) Stl Cryptosporidium Ag Positive A (Negative) 03/17/21 Range/Units 06:11 WBC (3.8-10.6) k/uL Lymphocytes # (Manual) (1.0-4.8) k/uL Sodium 136 L (137-145) mmol/L BUN <2 L (7-17) mg/dL Stool Lactoferrin (NEGATIVE) Stl Cryptosporidium Ag (Negative) Microbiology - Last 24 Hours (Table) 03/10/21 18:15 Blood Culture - Final Blood No Growth after 144 hours Assessment and Plan Assessment: Acute gastroenteritis with continued diarrhea possibly secondary to cryptosporidium, status post course of nitazoxanide Persistent cryptosporidium on the repeat stool exam Severe dehydration, present on admission secondary to continue diarrhea with diminished by mouth intake at the time of admission Acute metabolic acidosis secondary to diarrhea, present on admission Hyponatremia Hypokalemia Lymphopenia Elevated AST, ALT, acute hepatitis possibly, mild eukopenia, mild Abnormal urine with 4+ ketones, present on admission History of gastroesophageal reflux disease Hypothyroidism history History of hysterectomy History of tubal ligation History of thyroid surgery Full code Recommendations and discussion: Recommend to continue with current medications, management, and symptomatic t reatment. Patient is tolerating diet and slowly advancing as tolerated. Patient states her loose stools have improved slightly and awaiting repeat culture of stool is most recent repeat continue to show cryptosporidium. Continue to monitor electrolytes closely and replace per protocol. IV fluids discontinued and we'll continue to monitor closely. Repeat labs in the morning. Due to multiple complex medical issues, prognosis is guarded. Possible discharge in 24-48 hours.
[2021-03-18 06:07] VITALS: RESP 16
[2021-03-18 08:33] VITALS: TEMP 97.9
[2021-03-18] MEDS: ESTRADIOL 0.1 MG/GM VAGINAL CREAM 42.5 GM TUBE VAGINAL SCH ×2 (09:08→09:17)
[2021-03-18] MEDS: PANTOPRAZOLE 40 MG TABLET PO SCH (09:09)
[2021-03-18] MEDS: HEPARIN SODIUM,PORCINE/PF 5,000 UNIT/0.5 ML SYRINGE SQ SCH ×2 (09:09→09:16)
[2021-03-18] MEDS: NITAZOXANIDE 500 MG TABLET PO SCH ×2 (09:14→18:52)
--- NOTE | 2021-03-18 11:27 | PN ---
PROGRESS NOTE DATE OF SERVICE: 03/20/2021 REASON FOR FOLLOWUP: Acute Cryptosporidium. INTERVAL HISTORY: The patient is afebrile. The patient is feeling better. The patient's diarrhea has significantly improved. No new episode in the last 24 hours and ( ). No abdominal pain. No blood in stool. No chest pain, shortness of breath or cough. PHYSICAL EXAMINATION: Blood pressure 115/73 with a pulse of 80, temperature 97.9. She is 97% on room air. GENERAL DESCRIPTION: The patient is a middle-aged female lying in bed in no distress. RESPIRATORY SYSTEM: Unlabored breathing, clear to auscultation anteriorly. HEART: S1, S2. Regular rate and rhythm. ABDOMEN: Soft, no tenderness. LABS: ( ) so far negative. No CBC was done today. DIAGNOSTIC IMPRESSION AND PLAN: Patient admitted to the hospital with acute bacterial gastroenteritis. Stool positive for Cryptosporidium, has received about 5 days of nitazoxanide. Should ( ) Questran as needed. Advised to increase her probiotic and yogurt intake and close outpatient followup. Multiple questions were answered. MMODL / IJN: [id number] /
--- NOTE | 2021-03-18 14:09 | P.PN ---
Subjective Progress Note Date: 03/18/21 Principal diagnosis: Diarrhea Patient is seen and examined sitting up at the bedside. States she's feeling much better. Had 4 episodes of loose stool yesterday but more formed. Today she states she only had about two quarters size bowel movements again more form describes as quitting. Denies any abdominal pain, nausea, or vomiting. Her diet. She's been afebrile. Objective - Vital Signs Vital signs: Vital Signs Temp 97.9 F 03/18/21 08:23 Pulse 80 03/18/21 08:23 Resp 16 03/18/21 08:23 BP 115/73 03/18/21 08:23 Pulse Ox 97 03/18/21 08:23 Intake & Output 03/17/21 03/18/21 03/18/21 18:59 06:59 18:59 Intake Total 120 Output Total 750 60 Balance -630 -60 Weight 69.7 kg Intake: Oral 120 Output: Stool 750 60 Other: Voiding Method Toilet Toilet # Voids 3 # Bowel Movements 1 - Exam General appearance: The patient is alert, oriented, appears in no acute distress. HET: Head is normocephalic and atraumatic. Conjunctiva pink. Sclera anicteric. Neck: Supple without lymphadenopathy. Abdomen: Soft, nontender, nondistended with bowel sounds. No guarding or rigidity. Extremities: Normal skin color and turgor. No pedal edema Skin: No rashes, no jaundice Neurological: No focal deficits. Alert and oriented 3. - Labs CBC & Chem 7: 03/17/21 06:11 03/17/21 06:11 Labs: Abnormal Lab Results - Last 24 Hours (Table) 03/13/21 03/17/21 Range/Units 16:23 06:11 Lymphocytes # (Manual) 0.68 L (1.0-4.8) k/uL [id number] 0.44 H (0.10-0.40) g/dL Microbiology - Last 24 Hours (Table) 03/15/21 15:18 Stool Culture - Preliminary Stool Assessment and Plan (1) Diarrhea due to cryptosporidium Narrative/Plan: 51-year-old female presenting for intractable diarrhea found to have cryptosporidium infection. She is status post 3 days of antibiotic therapy. She is also taking cholestyramine twice daily. Computed tomography scan of the abdomen negative for any acute intra-abdominal pathology. Last colonoscopy 7 years ago. Current Visit: Yes Status: Acute Code(s): A07.2 - CRYPTOSPORIDIOSIS SNOMED Code(s): 15858148 Plan: Supportive care Okay for diet as tolerated, suggest low lactose and low fiber in the acute setting Repeat course of antibiotic therapy as per infectious disease recommendations Recommend titrating down on cholestyramine Okay for probiotic as ordered as symptoms improve Thank you for allowing us to participate in the care of the patient, she may be discharged home Dr. Wheeler I agree with the dictator's note, documented as a scribe by Cate Vidales.
[2021-03-18 14:44] VITALS: BP 118/76; PULSE 77
[2021-03-18] MEDS ORDERED: CHOLESTYRAMINE (WITH SUGAR) 4 GM PACKET PO SCH (18:00)
== END 2021-03-18 19:03 | disposition home or self-care (01) | DRG 372 ==
LOC: EC 09:39 → 6PED 14:03 → OBSVTOIN 03-12 23:23
PROVIDERS: ADMIT Hospitalist; ATTEND Hospitalist
DX: A07.2 Cryptosporidiosis (principal); B17.9 Acute viral hepatitis, unspecified; E87.1 Hypo-osmolality and hyponatremia; E87.2 Acidosis; D69.6 Thrombocytopenia, unspecified; E86.0 Dehydration; Z20.822 Contact with and (suspected) exposure to COVID-19; E87.6 Hypokalemia; D72.810 Lymphocytopenia; K21.9 Gastro-esophageal reflux disease without esophagitis; I10 Essential (primary) hypertension; E03.9 Hypothyroidism, unspecified; R82.90 Unspecified abnormal findings in urine; Z79.899 Other long term (current) drug therapy; Z98.51 Tubal ligation status; Z90.710 Acquired absence of both cervix and uterus; Z87.42 Personal history of other diseases of the female genital tract; Z87.01 Personal history of pneumonia (recurrent); Z98.890 Other specified postprocedural states; Z88.1 Allergy status to other antibiotic agents; Z88.0 Allergy status to penicillin; Z88.2 Allergy status to sulfonamides
CPT/HCPCS: 36415; 74177; 80048; 80053; 80074; 80076; 80306; 81001; 82150; 82306; 82607; 82728; 82746; 82784; 83540; 83550; 83605; 83615; 83630; 83690; 83735; 83883; 83921; 84165; 84432; 84443; 84484; 84550; 85025; 85045; 85610; 85652; 85730; 86038; 86140; 86334; 86360; 86431; 86800; 87040; 87045; 87046; 87086; 87324; 87328; 87329; 87390; 87425; 93005; 96361; 96374; 96375; 99285

== ENCOUNTER → 2022-01-06 | Outpatient (CLI) | payer OTHER ==
--- NOTE | 2022-01-08 08:42 | MM ---
Reason for exam: screening (asymptomatic). Last mammogram was performed 1 year and 4 months ago. History: Took estrogen beginning at age 50. Physical Findings: A clinical breast exam by your physician is recommended on an annual basis and results should be correlated with mammographic findings. MG 3D Screening Mammo W/Cad Bilateral CC and MLO view(s) were taken. Prior study comparison: September 16, 2020, bilateral MG 3d screening mammo w/cad. March 14, 2019, bilateral MG 3d screening mammo w/cad. The breast tissue is heterogeneously dense. This may lower the sensitivity of mammography. Benign appearing calcifications in the left breast. No significant changes when compared with prior studies. ASSESSMENT: Negative, BI-RAD 1 RECOMMENDATION: Routine screening mammogram of both breasts in 1 year.
== END | disposition home or self-care (01) ==
LOC: RADMAMWWP 07:19
PROVIDERS: ATTEND Obstetrics & Gynecology
DX: Z12.31 Encounter for screening mammogram for malignant neoplasm of breast (principal)
CPT/HCPCS: 77063; 77067

== ENCOUNTER → 2022-06-25 | Outpatient (CLI) | payer OTHER ==
[2022-06-25 15:35] LABS: Basophils # (A) 0.01 X 10*3/uL (0.00-0.10); Basophils % (A) 0.2 %; Eosinophils # (A) 0.05 X 10*3/uL (0.04-0.35); Eosinophils % (A) 1.2 %; HCT 37.8 % (37.2-46.3); Immature Grans, Automated 0 %; Lymphocytes # (A) 0.86 X 10*3/uL (0.90-5.00); Lymphocytes % (A) 20.2 %; MCH 29.3 pg (27.0-32.0); MCHC 34.4 g/dL (32.0-37.0); MCV 85.1 fL (80.0-97.0); Mean Platelet Volume 11.2 fL (9.5-12.2); Monocytes # (A) 0.31 X 10*3/uL (0.20-1.00); Monocytes % (A) 7.3 %; NRBC Per 100 WBC 0 /100 WBCS (0.0-0.0); Neutrophils # (A) 3.02 X 10*3/uL (1.80-7.70); Neutrophils % (A) 71.1 %; Platelet Count 185 X 10*3/uL (140-440); RBC 4.44 X 10*6/uL (4.10-5.20); RDW 11.5 % (11.5-14.5); WBC 4.25 X 10*3/uL (4.50-10.00)
[2022-06-25 15:37] LABS: ALT 10 U/L (8-44); AST 18 U/L (13-35); African American GFR (CKD) 123.2 (60.0-200.0); Albumin 4.2 g/dL (3.8-4.9); Albumin/Globulin Ratio 1.83 (1.60-3.17); Alkaline Phosphatase 57 U/L (41-126); BUN/Creat Ratio 19.83 Ratio (12.00-20.00); Blood Urea Nitrogen 11.9 mg/dL (9.0-27.0); Carbon Dioxide 26.2 mmol/L (20.0-27.5); Chloride 105 mmol/L (96-109); Chol/HDL Ratio 2.68 Ratio; Follicle Stimulating Hormone 91.1 mIU/mL; Globulin 2.3 g/dL (1.6-3.3); Glucose 81 mg/dL (70-110); LDL Cholesterol,Calculated 101.3 mg/dL (0.0-131.0); Non-African American GFR(CKD) 106.3 (60.0-200.0); Potassium 3.9 mmol/L (3.5-5.5); Sodium 140 mmol/L (135-145); Total Protein 6.5 g/dL (6.2-8.2); VLDL Calculation 10.82 mg/dL (5.00-40.00)
[2022-06-25 16:01] LABS: Estradiol <5.0 pg/mL
== END | disposition home or self-care (01) ==
LOC: LABWHC1 10:23
PROVIDERS: ATTEND Internal Medicine
DX: Z13.220 Encounter for screening for lipoid disorders (principal); I10 Essential (primary) hypertension; F32.81 Premenstrual dysphoric disorder; D50.8 Other iron deficiency anemias; Z98.890 Other specified postprocedural states
CPT/HCPCS: 36415; 80053; 80061; 82670; 83001; 84144; 84443; 85025

== ENCOUNTER → 2023-05-06 | Outpatient (CLI) | payer OTHER ==
[2023-05-06 16:24] LABS: Basophils # (A) 0.02 X 10*3/uL (0.00-0.10); Basophils % (A) 0.5 %; Eosinophils # (A) 0.05 X 10*3/uL (0.04-0.35); Eosinophils % (A) 1.1 %; HCT 38.9 % (37.2-46.3); HGB 13.1 d/dL (12.0-15.0); Lymphocytes # (A) 1.06 X 10*3/uL (0.90-5.00); Lymphocytes % (A) 24.1 %; MCH 28.7 pg (27.0-32.0); MCHC 33.7 d/dL (32.0-37.0); MCV 85.1 FL (80.0-97.0); Mean Platelet Volume 11.1 FL (9.5-12.2); Monocytes # (A) 0.28 X 10*3/uL (0.20-1.00); Monocytes % (A) 6.4 %; NRBC Per 100 WBC 0 X 10*3/uL (0.00-0.01); Neutrophils # (A) 2.98 X 10*3/uL (1.80-7.70); Neutrophils % (A) 67.7 %; Platelet Count 174 X 10*3/uL (140-440); RBC 4.57 X 10*6/uL (4.10-5.20); RDW 11.5 % (11.5-14.5)
[2023-05-06 16:48] LABS: % Iron Saturation 21.03 (12.00-45.00); ALT 17 U/L (8-44); AST 18 U/L (13-35); Albumin 4.5 d/dL (3.8-4.9); Alkaline Phosphatase 58 U/L (41-126); BUN/Creat Ratio 12.57 Ratio (12.00-20.00); Blood Urea Nitrogen 8.8 mg/dL (9.0-27.0); Calcium 9.6 mg/dL (8.7-10.3); Carbon Dioxide 27.5 mmol/L (21.6-31.8); Chloride 108 mmol/L (96-109); Chol/HDL Ratio 3.38 Ratio; Ferritin 58.4 ng/mL (10.0-291.0); Globulin 1.8 d/dL (1.6-3.3); Glucose 83 mg/dL (70-110); Iron 61 UG/DL (50-170); LDL Cholesterol,Calculated 131.5 mg/dL (0.0-131.0); Potassium 4.2 mmol/L (3.5-5.5); Sodium 143 mmol/L (135-145); Total Bilirubin 0.3 mg/dL (0.3-1.2); Total Iron Binding Capacity 290 UG/DL (228-460); Total Protein 6.3 d/dL (6.2-8.2); VLDL Calculation 12.16 mg/dL (5.00-40.00)
== END | disposition home or self-care (01) ==
LOC: LABWHC1 09:35
PROVIDERS: ATTEND Internal Medicine Cardiovascular Disease
DX: Z13.220 Encounter for screening for lipoid disorders (principal); I10 Essential (primary) hypertension; D50.8 Other iron deficiency anemias; E55.9 Vitamin D deficiency, unspecified; R53.83 Other fatigue
CPT/HCPCS: 36415; 80053; 80061; 82306; 82728; 83540; 83550; 84443; 85025

== ENCOUNTER → 2023-08-13 | Outpatient (CLI) | payer OTHER ==
--- NOTE | 2023-08-16 16:25 | MM ---
Reason for Exam: Screening (asymptomatic). Last mammogram was performed 1 year(s) and 7 month(s) ago. Patient History: Menarche at age 14. First Full-Term at age 23. Hysterectomy at age 47. Estrogen, starting at age 50. Risk Values: Verito 5 year model risk: 0.9%. NCI Lifetime model risk: 7.9%. Prior Study Comparison: 03/14/2019 Bilateral Screening Mammogram, [facility]. 09/16/2020 Bilateral Screening Mammogram, [facility]. 01/06/2022 Bilateral Screening Mammogram, [facility]. Tissue Density: The breast tissue is heterogeneously dense. This may lower the sensitivity of mammography. Findings: Analyzed By CAD. Parenchymal pattern appears symmetrical. There is some focal distortion within the upper right mediolateral oblique view not identified on the craniocaudal view. Additional evaluation of this area is recommended. Left breast: No suspicious groups of microcalcifications, spiculated or lobular masses, architectural distortion or other secondary signs of malignancy are mammographically apparent. Overall Assessment: Incomplete: need additional imaging evaluation, BI-RAD 0 Management: Diagnostic Mammogram of the right breast. A negative mammogram report should not preclude additional follow up of suspicious palpable abnormalities. Patient should continue monthly self breast exam. A clinical breast exam by your physician is recommended on an annual basis and results should be correlated with mammographic findings. Electronically signed and approved by: Garett Covington D.O. Radiologis
== END | disposition home or self-care (01) ==
LOC: RADMAMWWP 13:57
PROVIDERS: ATTEND Obstetrics & Gynecology
DX: Z12.13 Encounter for screening for malignant neoplasm of small intestine (principal)
CPT/HCPCS: 77063; 77067

== ENCOUNTER → 2023-08-27 | Outpatient (CLI) | payer OTHER ==
--- NOTE | 2023-08-27 08:48 | MM ---
Reason for Exam: Additional evaluation requested from abnormal screening. Last screening mammogram was performed less than 1 month ago. Patient History: Menarche at age 14. First Full-Term at age 23. Hysterectomy at age 47. Estrogen, starting at age 50. Risk Values: Verito 5 year model risk: 0.9%. NCI Lifetime model risk: 7.9%. Prior Study Comparison: 03/14/2019 Bilateral Screening Mammogram, [facility]. 09/16/2020 Bilateral Screening Mammogram, [facility]. 01/06/2022 Bilateral Screening Mammogram, [facility]. 08/13/2023 Bilateral MG 3D screening mammo w/cad, [facility]. Tissue Density: Right: The breast tissue is heterogeneously dense. This may lower the sensitivity of mammography. Findings: Analyzed By CAD. The area of superior asymmetric density disperses on spot 3-D views. The appearance is similar to prior exams. Findings compatible with superimposition shadow. Overall Assessment: Benign, BI-RAD 2 Management: Screening Mammogram of both breasts in 1 year. . Results were given to the patient verbally at the time of exam. Patient should continue monthly self-breast exams. A clinical breast exam by your physician is recommended on an annual basis. This exam should not preclude additional follow-up of suspicious palpable abnormalities. Note on Verito scores and lifetime risk: 1. A Verito score greater than 3% is considered moderate risk. If this is the case, consider specialist referral to assess eligibility for a risk reducing agent. 2. If overall lifetime risk for the development of breast cancer is 20% or higher, the patient may qualify for future screening with alternating mammogram and breast MRI. Electronically signed and approved by: Kelsey Almanza M.D. Radiologist
== END | disposition home or self-care (01) ==
LOC: RADMAMWWP 08:18
PROVIDERS: ATTEND Obstetrics & Gynecology
DX: R92.331 Mammographic heterogeneous density, right breast (principal)
CPT/HCPCS: 77061; 77065

== ENCOUNTER → 2023-11-16 | Outpatient (CLI) | payer OTHER ==
[2023-11-16 17:28] LABS: Basophils # (A) 0.02 X 10*3/uL (0.00-0.10); Basophils % (A) 0.5 %; Eosinophils # (A) 0.04 X 10*3/uL (0.04-0.35); HCT 39.7 % (37.2-46.3); HGB 13.5 g/dL (12.0-15.0); Immature Grans, Automated 0 %; Lymphocytes # (A) 1.16 X 10*3/uL (0.90-5.00); Lymphocytes % (A) 29.9 %; MCV 85.2 FL (80.0-97.0); Mean Platelet Volume 11.1 FL (9.5-12.2); Monocytes # (A) 0.21 X 10*3/uL (0.20-1.00); Monocytes % (A) 5.4 %; NRBC Per 100 WBC 0 X 10*3/uL (0.00-0.01); Neutrophils # (A) 2.45 X 10*3/uL (1.80-7.70); Neutrophils % (A) 63.2 %; Platelet Count 188 X 10*3/uL (140-440); RBC 4.66 X 10*6/uL (4.10-5.20); RDW 11.6 % (11.5-14.5); WBC 3.88 X 10*3/uL (4.50-10.00)
[2023-11-16 17:54] LABS: ALT 14 U/L (8-44); AST 16 U/L (13-35); Albumin 4.5 g/dL (3.8-4.9); Albumin/Globulin Ratio 2.14 Ratio (1.60-3.17); Alkaline Phosphatase 60 U/L (41-126); BUN/Creat Ratio 11.25 Ratio (12.00-20.00); Calcium 9.7 mg/dL (8.7-10.3); Carbon Dioxide 27.3 mmol/L (21.6-31.8); Chloride 104 mmol/L (96-109); Chol/HDL Ratio 3.35 Ratio; Globulin 2.1 g/dL (1.6-3.3); Glucose 86 mg/dL (70-110); LDL Cholesterol,Calculated 133.2 mg/dL (0.0-131.0); Potassium 4.7 mmol/L (3.5-5.5); Sodium 140 mmol/L (135-145); Total Bilirubin 0.4 mg/dL (0.3-1.2); Total Protein 6.6 g/dL (6.2-8.2); VLDL Calculation 14.84 mg/dL (5.00-40.00)
== END | disposition home or self-care (01) ==
LOC: LABWHC1 11:02
PROVIDERS: ATTEND Internal Medicine
DX: Z13.220 Encounter for screening for lipoid disorders (principal); I10 Essential (primary) hypertension; E55.9 Vitamin D deficiency, unspecified; D72.819 Decreased white blood cell count, unspecified
CPT/HCPCS: 36415; 80053; 80061; 82306; 85025